=== PATIENT | male | born 1940 | race Caucasian/White ===

== ENCOUNTER → 2016-07-14 19:13 | Outpatient (CLI) | payer MEDICARE, BC ==
[2014-07-04 13:29] VITALS: BMI 47.1
[~2016-07-14 19:13] MED LIST: ACETAMINOPHEN325 MG PO; ARICEPT5 MG PO; ASPIRIN325 MG PO; BAYER CHEWABLE81 MG PO; BENADRYL50 MG PO; COLACE100 MG PO; ELECTROLYTE PROTOCOL; ELIQUIS2.5 MG PO; FLOMAX0.4 MG PO; HYDROCHLOROTH12.5 M1 PO; HYDROCODON-ACE1 EAC7 PO; K-TAB10 MEQ PO; LABETALOL HCL5 MG/M1 IV; LASIX40 MG PO; LEXAPRO20 MG PO; LISINOPRIL10 MG PO; LISINOPRIL5 MG PO; MELATONIN 3 MG1 TAB PO; METOPROLOL TAR100 M1 PO; METOPROLOL TART25 MG PO; MEVACOR20 MG PO; MILK OF MAGNESI30 ML GT; MIRALAX17 GM PO; MOBIC7.5 MG PO; NORVASC5 MG PO; ONDANSETRON4 MG/2 M3 PO; PERCOCET 10/3251 TA1 PO; PLAVIX75 MG PO; PRAVACHOL40 MG PO; SALINE FLUSH10 ML IV; SENOKOT-S TABLE1 TAB PO; SYNTHROID50 MCG PO; SYNTHROID75 MCG PO; SYSTANE 0.3-0.4%5 ML EACH EYE; TAMIFLU75 MG PO; TOPROL XL50 MG PO; TRAZODONE HCL50 MG PO
== END | disposition home or self-care (01) ==
LOC: D.LABREF 19:13
DX: M17.9 Osteoarthritis of knee, unspecified (principal); Z11.8 Encounter for screening for other infectious and parasitic diseases

== ENCOUNTER → 2016-07-16 06:49 | Outpatient (CLI) | payer MEDICARE, BC ==
[~2016-07-16] VITALS: Ht 167.6 cm; Wt 131.8 kg
--- NOTE | ~2016-07-16 | HEMODYNAMI ---
PATIENT:HEIDI LIZAMA MEDICAL RECORD: [id number] : 40 LOCATION:[facility] ADMISSION DATE: 07/16/16 Generatedon:07/16/201610:13 Patient name: HEIDI LIZAMA Patient #: [id number] SSN: [id number] : 1940 Date of study: 07/16/2016 Page: Of Hemodynamic Procedure Report Patient Data Patient Demographics Procedure consent was obtained First Name: HEIDI Gender: Male Last Name: ALDA : 1940 Middle Initial: KEILY Age: 76 year(s) Patient #: [id number] Race: SSN: [id number] Additional ID: [id number] Contact details Address: [address] [place] [address] State: [place] City: [place] Zip code: [address] Past Medical History Allergies: No known allergies Admission Admission Data Admission Date: 07/16/2016 Admission Time: 6:49 Admit Source: Other Insurance Payor: Medicare, Private health insurance Height (in.): 66 BSA: 2.34 (m2) Height (cm.): 167.64 BMI: 46.9 (kg/m2) Weight (lbs.): 290.59 Weight (kg.): 131.81 Medications upon Admission Medications Dosage Times Administered Last Remarks per Delivery Day Date and Time Clopidogrel Yes 07/16/2016 0:00 Lab Results Lab Result Date: 07/16/2016 Lab Result Time: 7:30 Biochemistry Name Units Result Min Max BUN mg/dl 15 --(--*-)-- 7 18 Creatinine mg/dl 1 --(--*-)-- 0.6 1.3 CBC Name Units Result Min Max Hematocrit % 37.2 *-(----)-- 42 54 Hemoglobin g/dl 11.9 *-(----)-- 13.5 17.5 Procedure Procedure Types Cath Procedure Diagnostic Procedure [facility] w/Coronaries PCI Procedure Coronary Stent Initial PTCA Additional Procedure Description Procedure Date Procedure Date: 07/16/2016 Procedure Start Time: 9:38 Procedure End Time: 10:12 Procedure Staff Name Function Maurice Olea MD Performing Physician Ivonne Garsia RN Nurse Cory Beyer RT Monitor James Alfred RT Electron Beam Photo Mask Maker Jassi Ulrich RT Monitor Procedure Data Cath Procedure Fluoroscopy Diagnostic fluoroscopy Total fluoroscopy Time: 7.5 time: 7.5 min min Diagnostic fluoroscopy Total fluoroscopy dose: dose: 2215 mGy 2215 mGy Contrast Material Contrast Material Type Amount (ml) Isovue 300 175 Entry Location Entry Primary Successful Side Size Upsize Upsize Entry Closure Dickerson ccessful Closure Location (Fr) 1 (Fr) 2 (Fr) Remarks Device Remarks Radial Right 6 Fr Mechanical artery Short Compression Diagnostic catheters Device Type Used For End Catheter Placement Terumo 5Fr Van 110cm LV Angiography catheter Procedure Complications No complications Procedure Medications Medication Administration Route Dosage Oxygen NC 2 l/min Heparin Flush Bag added to field 2 bags (1000units/500ml NS) Lidocaine 2% added to field 20 Radial Cocktail added to field 1 syringe (Verapomil 2mg/Nitro 400mcg/Heparin 1500units) Benadryl I.V. 50 mg Versed I.V. 1 mg Fentanyl I.V. 50 mcg Versed I.V. 1 mg Fentanyl I.V. 50 mcg Versed I.V. 0.5 mg Fentanyl I.V. 25 mcg Versed I.V. 0.5 mg Fentanyl I.V. 25 mcg Fentanyl I.V. 50 mcg Versed I.V. 0.5 mg Fentanyl I.V. 50 mcg Versed I.V. 0.5 mg Fentanyl I.V. 50 mcg [place]. 82251 units Versed I.V. 0.5 mg Fentanyl I.V. 50 mcg Nitroglycerin IC/IA I.C. 100 mcg Fentanyl I.V. 50 mcg Versed I.V. 0.5 mg Versed I.V. 1 mg Hemodynamics Rest BSA: 2.34 (m2) HGB: 11.9 (g/dl) O2 Consumption: Estimated: 252.29 (ml/min) O2 Co nsumption indexed: Estimated:107.82 (ml/min/m) Heart Rate: 52 (bpm) Pressure Samples Time Site Value (mmHg) Purpose Heart Use Rate(bpm) 9:45 LV 116/14,25 EDP 56 Gradients Valve Time Site Site Mean SEP/DFP Peak To Heart Use 1 2 (mmHg) (sec/min) Peak Rate (mmHg) (bpm) Aortic 9:45 LV AO 55 Snapshots Pre Cath Intra NCS Post Cath Vital Signs Time Heart Resp SPO2 NIBP (mmHg) Rhythm Pain Status Sedation Rate (ipm) (%) Level (bpm) 9:07:40 50 18 96 153/84(133) SB 7 (11) , 10(A) Very intense 9:12:02 51 20 97 166/85(133) SB 7 (11) , 10(A) Very intense 9:16:18 51 18 96 138/73(117) SB 7 (11) , 10(A) Very intense 9:20:36 54 18 96 126/69(107) SB 7 (11) , 10(A) Very intense 9:24:50 55 22 96 133/77(107) SB 7 (11) , 10(A) Very intense 9:29:08 50 18 95 133/75(109) SB 7 (11) , 10(A) Very intense 9:33:24 53 18 95 135/77(112) SB 7 (11) , 10(A) Very intense 9:37:42 51 24 96 130/73(116) SB 7 (11) , 10(A) Very intense 9:42:41 52 16 96 Measuring SB 7 (11) , 10(A) Very intense 9:42:43 53 16 96 136/78(111) SB 4 (11) , 10(A) Distressing 9:46:59 57 17 593 101/56(83) SB 4 (11) , 10(A) Distressing 9:51:07 54 22 95 113/62(92) SB 4 (11) , 10(A) Distressing 9:55:19 53 21 95 122/67(98) SB 4 (11) , 10(A) Distressing 9:59:35 52 17 95 115/61(89) SB 4 (11) , 10(A) Distressing 10:03:47 52 19 95 127/69(120) SB 4 (11) , 10(A) Distressing 10:08:03 51 16 95 121/73(105) SB 4 (11) , 10(A) Distressing 10:12:15 52 16 96 136/74(119) SB 4 (11) , 10(A) Distressing Medications Time Medication Route Dose Verified Delivered Reason Note s Effectiveness by by 9:09:46 Oxygen NC 2 l/min Maurice Ivonne Per physician Hai Garsia RN 9:09:53 Heparin Flush added 2 bags Maurice Maurice used for Bag to Hai Olea MD procedure (1000units/500ml field NS) 9:10:05 Lidocaine 2% added 20ml Maurice Maurice used for to vial Hai Olea MD procedure field 9:10:10 Radial Cocktail added 1 Maurice Maurice used for (Verapomil to syringe Hai Olea MD procedure 2mg/Nitro field 400mcg/Heparin 1500units) 9:10:21 Benadryl I.V. 50 mg Maurice Ivonne Per physician Hai Garsia RN 9:21:58 Versed I.V. 1 mg Maurice Ivonne for sedation Hai Garsia RN 9:22:04 Fentanyl I.V. 50 mcg Maurice Ivonne for sedation Hai Garsia RN 9:24:19 Versed I.V. 1 mg Maurice Ivonne for sedation Hai Garsia RN 9:24:23 Fentanyl I.V. 50 mcg Maurice Ivonne for sedation Hai Garsia RN 9:26:41 Versed I.V. 0.5 mg Maurice Ivonne for sedation Hai Garsia RN 9:26:51 Fentanyl I.V. 25 mcg Maurice Ivonne for sedation Hai Garsia RN 9:32:59 Versed I.V. 0.5 mg Maurice Ivonne for sedation Hai Garsia RN 9:33:05 Fentanyl I.V. 25 mcg Maurice Ivonne for sedation Hai Garsia RN 9:37:13 Fentanyl I.V. 50 mcg Maurice Ivonne for sedation Hai Garsia RN 9:39:30 Versed I.V. 0.5 mg Maurice Ivonne for sedation Hai Garsia RN 9:43:58 Fentanyl I.V. 50 mcg Maurice Ivonne for sedation Hai Garsia RN 9:44:01 Versed I.V. 0.5 mg Maurice Ivonne for sedation Hai Garsia RN 9:51:48 Fentanyl I.V. 50 mcg Maurice Ivonne for sedation Hai Garsia RN 9:53:14 [place]. 79837 Maurice Ivonne for dose units Hai Garsia RN anticoagulation verifid with dr olea 9:55:51 Versed I.V. 0.5 mg Maurice Ivonne for sedation Hai aGrsia RN 9:55:58 Fentanyl I.V. 50 mcg Maurice Ivonne for sedation Hai Garsia RN 10:00:13 Nitroglycerin I.C. 100 mcg Maurice Maurice for IC/IA Hai her 10:00:57 Fentanyl I.V. 50 mcg Maurice Ivonne for sedation Hai Garsia RN 10:01:02 Versed I.V. 0.5 mg Maurice Ivonne for sedation Hai Garsia RN 10:03:32 Versed I.V. 1 mg Maurice Ivonne for sedation Hai Garsia RN Procedure Log Time Note 8:40:34 Admit Source: Other 8:41:05 ACC Patient presents with Stable Angina CCS Anginal Class 2--Slight limitation of ordinary activity. 8:41:07 Diagnostic Cath status Elective 8:41:11 James MCCABE(R) sent for patient. Start room use. 8:41:12 Time tracking: Regular hours 8:41:17 Plan of Care:Hemodynamics will remain stable., Cardiac rhythm will remain stable., Comfort level will be maintained., Respiratory function will remain adequate., Patient/ family verbilizes understanding of procedure., Procedure tolerated without complication., Recovers from procedure without complications.. 8:47:02 Patient allergic to No known allergies 8:47:08 Insurance Payor : Private health insurance, Medicare 8:47:58 H&P Date Dictated: 07/14/2016 Within 30 days and on chart., H&P Addendum completed by physician on day of procedure. (MUST COMPLETE FOR ALL OUTPATIENTS). 8:48:14 Patient Height : 167.64 cm 8:48:19 Patient Weight : 131.81 kg 8:49:34 Lab Result : BUN 15 mg/dl 8:49:34 Lab Result : Hematocrit 37.2 % 8:49:34 Lab Result : Hemoglobin 11.9 g/dl 8:49:34 Lab Result : Creatinine 1 mg/dl 8:49:54 Informed consent obtained and on chart 8:58:21 Patient received from Outpatients to CCL 1 Alert and oriented. Tansferred to table in Supine position. 8:58:23 Warm blankets applied, and emma hugger turned on for patient comfort. 8:58:23 Correct patient and procedure confirmed by team. 8:58:24 ECG and BP/O2 sat monitors applied to patient. 8:58:30 Pre-procedure instructions explained to patient. 8:58:31 Pre-op teaching completed and patient verbalized understanding. 8:58:33 Family in waiting room. 8:58:36 Patient NPO since Midnight. 8:58:39 Is the patient allergic to Iodine/contrast media? No. 8:58:40 Is patient on blood thinner?Yes 8:58:44 ACC The patient was administered the following blood thiners within the last 24 hours: ACCPlavix 9:03:06 Patient diabetic? No. 9:03:10 Previous problem with sedation/anesthesia? No ? 9:03:12 Snore? Yes 9:03:12 Sleep apnea? Yes 9:03:13 Deviated septum? No 9:03:14 Opens mouth fully? Yes 9:03:15 Sticks out tongue? Yes 9:03:17 Airway obstruction? No ? 9:03:22 Dentures? Yes IN 9:03:28 Pre procedure: right dorsailis pedis pulse 1+ Palpable, but thready & weak; easily obliterated 9:03:41 Modified Jarrod's test Ulnar < 7 seconds 9:03:43 Patient pain scale 0/10 ?. 9:03:52 IV patent on arrival in left forearm with 0.9% NaCl at KVO. 9:05:41 Vital chart was started 9:09:46 Oxygen 2 l/min NC was given by Ivonne Garsia RN; Per physician; 9:09:51 Lab results completed and on chart. 9:09:53 Heparin Flush Bag (1000units/500ml NS) 2 bags added to field was given by Maurice Olea MD; used for procedure; 9:09:55 Right Radial & Right Groin area was prepped with chlora-prep and draped in sterile fashion 9:09:56 Alarms reviewed by Cristiano. N. 9::57 Sharps counted by scrub and verified by R.N. 9:10:05 Lidocaine 2% 20ml vial added to field was given by Maurice Olea MD; used for procedure; 9:10:10 Radial Cocktail (Verapomil 2mg/Nitro 400mcg/Heparin 1500units) 1 syringe added to field was given by Maurice Olea MD; used for procedure; 9::21 Benadryl 50 mg I.V. was given by Ivonne Garsia RN; Per physician; 9::47 Zero performed for pressure channel P1 9::32 Baseline sample Acquired. 9::35 Rhythm: sinus rhythm 9::36 Full Disclosure recording started 9::49 --------ALL STOP TIME OUT------ 9::32 Final Timeout: patient, procedure, and site verified with staff and physician. All members of the team are in agreement. 9:21:34 Right Radial & Right Groin site verified by team. 9:21:37 Physical assessment completed. ASA score P 2 - A patient with mild systemic disease as per Maurice Olea MD. 9:21:40 Sedation plan: IV Moderate Sedation Versed, Fentanyl 9::58 Versed 1 mg I.V. was given by Ivonne Garsia RN; for sedation; 9:22:04 Fentanyl 50 mcg I.V. was given by Ivonne Garsia RN; for sedation; 9:23:19 Use device set Radial Dx 9:23:20 Acist Syringe opened to sterile field. 9:23:20 Cardinal Cath Pack opened to sterile field. 9:23:20 Bag Decanter opened to sterile field. 9:23:21 Terumo 6Fr Slender Glidesheath opened to sterile field. 9:23:21 St Benigno 260cm J .035 wire opened to sterile field. 9:23:22 Acist Hand Control opened to sterile field. 9:23:22 Acist Manifold opened to sterile field. 9:23:24 Tegaderm 4 x 4 opened to sterile field. 9:24:19 Versed 1 mg I.V. was given by Ivonne Garsia RN; for sedation; 9:24:23 Fentanyl 50 mcg I.V. was given by Ivonne Sun RN; for sedation; 9:26:41 Versed 0.5 mg I.V. was given by Ivonne Garsia RN; for sedation; 9:26:51 Fentanyl 25 mcg I.V. was given by Ivonne Garsia RN; for sedation; 9:32:59 Versed 0.5 mg I.V. was given by Ivonne Garsia RN; for sedation; 9:33:05 Fentanyl 25 mcg I.V. was given by Ivonne Garsia RN; for sedation; 9:37:13 Fentanyl 50 mcg I.V. was given by Ivonne Garsia RN; for sedation; 9:38:23 Procedure started. 9:38:39 Local anesthetic to right radial artery with Lidocaine 2% by Maurice Olea MD.INITIAL ACCESS ONLY 9:39:30 Versed 0.5 mg I.V. was given by Ivonne Garsia RN; for sedation; 9:39:48 A 6 Fr Short sheath was inserted into the Right Radial artery 9:42:36 A Bizzingo 5Fr Van 110cm catheter was advanced over the wire and used for LV Angiography. 9:43:58 Fentanyl 50 mcg I.V. was given by Ivonne Garsia RN; for sedation; 9:44:01 Versed 0.5 mg I.V. was given by Ivonne Garsia RN; for sedation; 9:45:51 LV angiography performed. 9:45:55 EF : 55 % 9:46:02 LV hemodynamics recorded. 9:46:04 Injector settings: Ml/sec: 5, Volume: 15, 9:46:27 RCA angiography performed. 9:47:06 LCA angiography performed. 9:48:36 Catheter removed. 9:50:23 [employer] BasixCompak Inflation Kit opened to sterile field. 9:50:24 High Pressure Extension Tubing ([place]le[place]) opened to sterile field. 9:50:24 Miller BMW [place] 2 J-tip 300cm 0.014 guide wir opened to sterile field. 9:50:25 Cordis 6FR XBLAD 3.5 guide catheter opened to sterile field. 9:50:32 ACC PCI Site: mLAD has 80% stenosis. 9:50:34 ACC Pre-intervention GARRICK Flow is 3. 9:50:41 6 Fr XBLAD 3.5 guide catheter was inserted over the wire 9:51:48 Fentanyl 50 mcg I.V. was given by Ivonne Garsia RN; for sedation; 9:53:14 Heparin Bolus 38054 units I.V. was given by Ivonne Garsia RN; for anticoagulation; dose verifid with dr olea 9:53:28 BMW 2 wire advanced. 9:55:51 Versed 0.5 mg I.V. was given by Ivonne Garsia RN; for sedation; 9:55:58 Fentanyl 50 mcg I.V. was given by Ivonne Garsia RN; for sedation; 9:58:27 Inflation Number: 1 A Boardwalk[employer] Integrity 3.5 X 22 stent was prepped and advanced across the Mid LAD. The stent was deployed at 15 SUZI for 0:18 (min:sec). 10:00:13 Nitroglycerin IC/IA 100 mcg I.C. was given by Maurice Olea MD; for vasodilation; 10:00:57 Fentanyl 50 mcg I.V. was given by Ivonne Garsia RN; for sedation; 10:01:02 Versed 0.5 mg I.V. was given by Ivonne Garsia RN; for sedation; 10:01:55 Wire removed. 10:02:22 DIAG 10:02:29 BMW 2 wire advanced. 10:02:50 Stent catheter was removed intact over wire. 10:03:32 Versed 1 mg I.V. was given by Ivonne Garsia RN; for sedation; 10:04:37 Inflation number: 1 A [place] Sci [place] 2.0 X 15 balloon was prepped and advanced across the 1st Diag, then inflated to 8 SUZI for 0:27 (min:sec). 10:05:57 Inflation number: 2 The [place] Sci [place] 2.0 X 15 balloon was reinflated across the 1st Diag, to 10 SUZI for 0:35 (min:sec). 10:07:27 Balloon removed over the wire. 10::28 Wire removed. 10::29 Guide catheter removed. 10:07:36 Contrast amount:Isovue 300 175ml. 10:07:40 Sheath removed intact; hemostasis achieved with Mechanical Compression to the Right Radial artery. 10:07:42 Procedure ended.(Physican Out) 10:08:28 Procedure type changed to Cath procedure, Diagnostic procedure, LHC, LHC w/Coronaries, PCI procedure, Coronary Stent Initial, PTCA Additional 10:08:35 Fluoroscopy time 07.50 minutes. 10:08:40 Fluoroscopy dose: 2215 mGy 10:08:40 Flurop Dose total: 2215 10:08:42 Sharps counted by scrub and verified by R.N. 10:08:44 TR band inflated with 10cc of air. 10:08:45 Insertion/operative site no bleeding no hematoma. 10:08:53 Post right radial artery:stable 10:08:54 Post Procedure Pulses reassessed and unchanged 10:08:57 Post procedure rhythm: sinus rhythm 10:08:59 Post procedure instruction explained to patient.Patient verbalizes understanding. 10:09:15 Terumo TR Band Large opened to sterile field. 10:09:21 Procedure and supply charges have been captured, reviewed, submitted and are correct. 10:10:05 Cook 21G 4cm Radial Needle opened to sterile field. 10:10:21 Procedure Complication : No complications 10:12:47 Vital chart was stopped 10:12:48 See physician's report for complete and final results. 10:12:50 Report given to Post Procedure Room. 10:12:53 Patient transfered to Post Procedure Room with Stretcher. 10:12:54 Procedure ended. 10:12:54 Full Disclosure recording stopped 10:13:03 End room use (Document Last) Intervention Summary Intervention Notes Time ActionType Lesion and Equipment Action# Pressure Duration Attributes Used 9:58:27 Place stent Mid LAD Medtronic 1 15 00:19 Integrity 3.5 X 22 stent 10:04:37 Inflate 1st Diag [place] 1 8 00:27 balloon Sci [place] 2.0 X 15 balloon 10:05:57 Reinflate 1st Diag [place] 2 10 00:35 balloon Sci [place] 2.0 X 15 balloon Device Usage Item Name Manufacture Quantity Catalog Number Hospital Part Current Mini [facility] Lot# / Charge Number Stock Stock Serial# Code Acist Acist 1 25696 415117 234422 933789 20 Syringe Medical Systems Inc Cardinal Cardinal 1 [id number] 215504 43578 931369 5 Cath Pack Health Bag Microtek 1 2002S 874720 40438 182521 5 Mobile Complete Inc. Terumo 6Fr Terumo 1 [id number] 526057 717991 373493 [address] St Benigno 1 947808 387002 420275 684367 30 260cm J .035 wire Acist Hand Acist 1 36025 143515 363983 040836 5 Control Medical Systems Inc Acist Acist 1 21215 003319 485195 890016 5 Manifold Medical Systems Inc Tegaderm 4 3M 1 1626W 941606 399463 839457 5 x 4 Terumo 5Fr Terumo 1 405023 465261 574186 314357 5 Van 110cm catheter Merit Merit 1 [id number] 860569 570332 160092 15 BasixCompak Medical Inflation Kit High Merit 1 [id number] 981144 48012 173240 10 Pressure Medical Extension Tubing ([place]le[place]) Miller BMW Miller 1 [id number] 646603 996075 013189 5 [place] 2 Vascular J-tip 300cm 0.014 guide wir Cordis 6FR Cardinal 1 [id number] 149893 135881 911661 10 XBLAD 3.5 Health guide catheter Medtronic Medtronic 1 [id number] 402541 889410 0 [id number] Integrity 3.5 X 22 stent [place] Sci [place] 1 [id number] 252952 745503 590824 1 [id number] infoBizz 2.0 X 15 balloon Terumo TR Terumo 1 [id number] 761749 848155 40 Band Large Cook 21G Cook [facility] 1 [id number] 222164 721593 5 4cm Radial Needle Signature Audit [place] Stage Time Signature Unsigned Intra-Procedure 07/16/2016 Jassi Ulrich 10:13:29 AM RT(R) Signatures Monitor : Cory Beyer RT Signature : Date : Time : Monitor : Jassi Ulrich RT Signature : Date : Time : [facility] [address] [place] [address]
[2016-07-16 07:44] LABS: BASOPHILS 0.3 % (0.0-2.0); EOSINOPHILS 3.3 % (0-7); HEMATOCRIT 37.2 % (42.0-54.0); HEMOGLOBIN 11.9 g/dL (13.5-17.5); IMMATURE GRANULOCYTES 0.3 % (0-5); LYMPHOCYTES 21.6 % (15-50); MCH 28.1 pg (26.0-34.0); MCV 87.9 fL (80.0-100.0); MEAN PLATELET VOLUME 10.2 fL (7.4-10.4); NEUTROPHILS 63.5 % (40-80); RBC 4.23 10x6/uL (4.20-6.10); RDW 14.8 % (11.5-14.5); WBC 7.6 10x3/uL (4.8-10.8)
[2016-07-16 07:52] LABS: PLATELET COUNT 152 10x3/uL (130-400)
[2016-07-16 08:02] LABS: CALC OSMOLALITY 281 mosm/kg (275-300); CALCIUM 8.5 mg/dL (8.5-10.1); CHLORIDE - SERUM 104 mmol/L (98-107); GLUCOSE 96 mg/dL (74-106); POTASSIUM - SERUM 3.8 mmol/L (3.5-5.1); SODIUM 141 mmol/L (136-145); UREA NITROGEN 15 mg/dL (7-18); eGFR NON AFRICAN AMERICAN 77 mL/min (90-120)
[2016-07-16 08:24] VITALS: BP 130/77; Ht 167.6 cm; Wt 131.8 kg
--- NOTE | 2016-07-16 10:40 | NUR ---
1040 RESTING QUIELTY WITH EYES CLOSED.NO DISTRESS NOTED. VSS WITH TR BAND TO R/WRIST CDI NO BLEEDING NO HEMATOMA NOTED.WILL MONITOR 1100 CHEST PAIN DENIED WITH TR BAND TO R/WRIST CDI NO BLEEDING NO HEMATOMA NOTED. VOIDS 200 CC CLEAR YELLOW URINE TO COLLECTION
--- NOTE | 2016-07-16 11:00 | NUR ---
1100 RESTING QUIETLY WITH EYES CLOSED RESPIRATIONS EVEN AND UNLABORED. VSS WITH TR BAND TO R/WRIST MONITOR
--- NOTE | 2016-07-16 11:30 | NUR ---
1130 NO CHANGE IN ASSESSMENT NO DISTRESS NOTED VSS TR BAND IN PLACE CDI NO BLEEDING NO HEMATOMA NOTED
--- NOTE | 2016-07-16 11:57 | NUR ---
CHEST PAIN DENIED WITH VSS TR BAND TO R/WRIST CDI NO BLEEDING NO HEMATOMA NOTED. INSTRUCTED PATIENT TO KIMBERLI CHILDERS STRAIGHT NO BENDING OR FLEXING OF WRIST
--- NOTE | 2016-07-16 13:12 | NUR ---
HR 49 BP 116/58 RESPIRATIONS EVEN AND UNLABORED WITH O2 AT 2 LITERS. TR BAND TO R/WRIST CDI NO BLEEDING NO HEMATOMA NOTED. AT BEDSIDE WILL MONITOR
--- NOTE | 2016-07-16 14:05 | NUR ---
VSS WITH CHEST PAIN DENIED. HR 49 BP 121/58 TR BAND TO R/WRIST CDI NO BLEEDING NO HEMATOMA NOTED INSTRUCTED PATIENT TO KEEP R/ARM STRAIGHT NO BENDING OR FLEXING
--- NOTE | 2016-07-16 14:47 | NUR ---
4 CC AIR REMOVED FROM TR BAND WITH NO BLEEDING NOTED. CHEST PAIN IS DENIED. PATIENT UP TO GET DRESSED FOR DISCHARGE HOME AT SIDE
--- NOTE | 2016-07-16 15:04 | NUR ---
PIV REMOVED WITH DRESSING APPLIED. CHEST PAIN DENIED VERBAL AND WRITTEN DISCHARGE INSTRUCTIONS GONE OVER WITH PATIENT AND . TR BAND REMOVED WITH NO BLEEDING NO HEMATOMA NOTED. DRESSING APPLIED. LEFT VIA TO [facility] FOR TO DRIVE HOME
--- NOTE | 2016-08-03 15:45 | OP ---
PATIENT NAME: HEIDI LIZAMA MEDICAL RECORD: [id number] :40 LOCATION:D.CAT ADMISSION DATE: SURGEON: DAKOTA WISEMAN M.D. DATE OF OPERATION: 07/16/2016 REFERRING PHYSICIAN: Dr. Dann Obrien. PROCEDURES PERFORMED: 1. Selective coronary angiography. 2. Left heart catheterization with ventriculogram. 3. PTCA and stent placed in the LAD. INDICATION: A 76-year-old gentleman presents with symptoms of heart failure and angina. EQUIPMENT USED: Diagnostic 5-[place] Van catheter. INTERVENTION: A 6-Kenyan XB LAD guide, BMW guide wire, 3.5 x 22 mm Integrity stent, 2.0 x 12 mm [place] balloon. TECHNIQUE: A 6-[place] sheath was inserted in retrograde fashion in the right radial artery. Next, selective coronary angiography was performed in standard view using 5-Kenyan Van catheter. Left heart catheterization was performed using use Van catheter as well. CORONARY ANATOMY: 1. Left main: Left main trunk is moderate in caliber. It gives rise to the LAD and circumflex. It is angiographically normal. 2. LAD: This is a large caliber vessel extending to the apex. The proximal vessel demonstrates an 80% stenosis at the level of the bifurcation of the first diagonal branch. 3. Circumflex: This vessel is moderate in caliber. It is angiographically normal. 4. Right coronary: This vessel is large in caliber and dominant. The PDA and posterolateral branch encompass the apex. This vessel has mild irregularities, but nothing worse than 20%. 5. Left ventricle: Left ventricle is normal in size and function. No wall motion abnormalities are seen. Its ejection fraction is 50%. DESCRIPTION OF INTERVENTION: A 100 units per kilogram of heparin was infused. A 6-[place]yan XB LAD guide was advanced and engaged in the left main coronary artery. Next, a BMW guide wire was placed to the distal LAD. The LAD was then stented with a 3.5 x 22 mm Integrity stent at 15 atmospheres. Injection reveals stent to be widely patent with 0% residual stenosis. There a was compromise in the first diagonal branch. The BMW guidewire was then ____ the diagonal branch. Long inflations performed to 2.0 balloon at 10 atmospheres. Injections revealed residual 40% stenosis, but no evidence of dissection. At this point, the wire and guide were removed. IMPRESSION: Successful percutaneous transluminal coronary angioplasty and stent to the LAD with 0% residual stenosis. TRANSINT:[id number] Voice Confirmation ID: [id number] DOCUMENT ID: [id number] OPERATIVE REPORT [id number] HEIDI LIZAMA TIMOTHY E M.D. at 1545 CC: [id number] DICTATION DATE: 07/16/16 1020 TOURS CAPTAIN: 07/16/16 1035 DEP CLI 07/16/16 [facility] [address] [place] [address]
== END | disposition home or self-care (01) ==
LOC: D.CATH 06:49
PROVIDERS: Internal Medicine Cardiovascular Disease
DX: I25.119 Atherosclerotic heart disease of native coronary artery with unspecified angina pectoris (principal)

== ENCOUNTER 2016-07-27 12:00 | Inpatient (IN) | payer MEDICARE, BC ==
[~2016-07-27] VITALS: Ht 167.6 cm; Wt 136.4 kg
[~2016-07-27 12:00] MED LIST changes: -ASPIRIN325 MG PO; -ELIQUIS2.5 MG PO; -LASIX40 MG PO; -METOPROLOL TART25 MG PO; -PERCOCET 10/3251 TA1 PO; -TAMIFLU75 MG PO
[2016-08-20 14:38] LABS: BASOPHILS 0.4 % (0.0-2.0); EOSINOPHILS 4.4 % (0-7); HEMATOCRIT 39.6 % (42.0-54.0); HEMOGLOBIN 12.6 g/dL (13.5-17.5); IMMATURE GRANULOCYTES 0.1 % (0-5); LYMPHOCYTES 30.5 % (15-50); MCH 28.1 pg (26.0-34.0); MCHC 31.8 g/dL (31.0-37.0); MCV 88.2 fL (80.0-100.0); MEAN PLATELET VOLUME 10.6 fL (7.4-10.4); MONOCYTES 11.9 % (2-11); NEUTROPHILS 52.7 % (40-80); PLATELET COUNT 148 10x3/uL (130-400); RBC 4.49 10x6/uL (4.20-6.10); RDW 14.1 % (11.5-14.5); WBC 7.8 10x3/uL (4.8-10.8)
[2016-08-20 14:52] LABS: ANION GAP 13.3 mmol/L (8-16); CALCIUM 8.8 mg/dL (8.5-10.1); CARBON DIOXIDE 27.8 mmol/L (21.0-32.0); CREATININE - SERUM 1.1 mg/dL (0.6-1.3); POTASSIUM - SERUM 4.1 mmol/L (3.5-5.1)
[2016-08-20] MEDS ORDERED: METOPROLOL TART25 MG PO (14:59)
[2016-08-20 15:09] LABS: INR 1.23 (0.85-1.17); PROTIME 15.4 SECONDS (11.6-15.0)
[2016-08-20 15:17] LABS: APPEARANCE CLEAR (CLEAR); BILIRUBIN NEGATIVE (NEGATIVE); COLOR YELLOW (YELLOW); GLUCOSE NEGATIVE (NEGATIVE); KETONE NEGATIVE (NEGATIVE); LEUKOCYTE ESTERASE NEGATIVE (NEGATIVE); NITRITE NEGATIVE (NEGATIVE); PROTEIN NEGATIVE (NEGATIVE); UROBILINOGEN NORMAL (NORMAL)
[2016-08-20 15:23] LABS: BACTERIA FEW /hpf (NONE SEEN); EPITHELIAL CELLS 0-5 /hpf (0-5); MUCUS >1+ /lpf (NONE SEEN); RED CELLS - URINE 0-5 /hpf (0-5); WHITE CELLS - URINE 0-5 /hpf (0-5)
[2016-08-24] VITALS (13 sets, daily range): BP systolic 113–186; BP diastolic 66–94; Ht 167.6 cm; Wt 136.4 kg
--- NOTE | 2016-08-24 06:58 | NUR ---
0658 PT/PTT DRAWN
[2016-08-24 07:24] LABS: APTT 25.7 SECONDS (22.8-39.4); INR 1.16 (0.85-1.17); PROTIME 14.7 SECONDS (11.6-15.0)
--- NOTE | 2016-08-24 08:56 | NUR ---
0827: LEFT LEG SCRUBBED WITH HIBICLENS AND ALCHOL PRIOR TO STERILE PREP. [facility]
--- NOTE | 2016-08-24 10:40 | NUR ---
PATIENT RECEIVED TO FLOOR FROM PACU VIA BED. RESPIRATIONS EVEN AND UNLABORED. VITAL SIGNS STABLE. FAMILY AT BEDSIDE. ORIENTED TO ROOM. INSTRUCTED PATIENT HE WOULD BE ON BEDREST AND NOT GETTING UP TODAY. STATES UNDERSTANDING. URNINAL PROVIDED. RATES PAIN 7/10. STATES IT IS BETTER THAN BEFORE. SCD TO RIGHT LEG. DRESSING TO LEFT KNEE CLEAN, DRY AND INTACT WITH WOUND VAC INTACT. ICE PACK IN PLACE. SIDE RAILS UP X2. BED IN LOW POSITION. CALL LIGHT IN REACH.
--- NOTE | 2016-08-24 12:20 | NUR ---
ALERT IN BED EATING LUNCH. STATES PAIN IS MORE TOLERABLE AFTER RECEIVING NORCO. SIDE RAILS UP X3. BED IN LOW POSITION. CALL LIGHT IN REACH. FAMILY AT BEDSIDE.
--- NOTE | 2016-08-24 13:20 | NUR ---
PATIENT ALERT IN HIGH RING POSITION VISITING WITH FAMILY. RESPIRATIONS EVEN AND UNLABORED. RATES PAIN 6/10. DENIES NEEDS. SIDE RAILS UP X3. BED IN LOW POSITION. CALL LIGHT IN REACH. WILL CONTINUE TO MONITOR.
--- NOTE | 2016-08-24 15:15 | NUR ---
PATIENT IN MID RING POSITION RESTING WITH EYES CLOSED. RESPIRATIONS EVEN AND UNLABORED. VITAL SIGNS STABLE. FAMILY PRESENT. SIDE RAILS UP X2. BED IN LOW POSITION. CALL LIGHT IN REACH.
--- NOTE | 2016-08-24 17:18 | NUR ---
PATIENT IN HIGH RING POSITION EATING DINNER. TOLERATING WELL. FAMILY PRESENT. RATES PAIN 12/19. 1 TAB NORCO PER PRN ORDER. DENIES NEEDS. SIDE RAILS UP X3. BED IN LOW POSITION. CALL LIGHT IN REACH.
--- NOTE | 2016-08-24 18:30 | NUR ---
IV TO LEFT FOREARM RED AND BRUISING AT SITE. IV D/C WITH CATH TIP INTACT. SITE COVERED WITH GAUZE AND BANDAID. ATTEMPTED TO RESITE 22 GAUGE IV TO RIGHT FOREARM X1 FAILED ATTEMPT. WILL HAVE ANOTHER NURSE ATTEMPT TO RESITE
--- NOTE | 2016-08-24 18:50 | NUR ---
22 GAUGE IV SITED TO LEFT UPPER ARM BY DEEPAK VAUGHAN
--- NOTE | 2016-08-24 18:57 | NUR ---
STATES SHE IS LEAVING AT THIS TIME. BED ALARM TURNED ON. SIDE RAILS UP X3. BED IN LOW POSITION. CALL LIGHT IN REACH.
--- NOTE | 2016-08-25 02:00 | NUR ---
PT IN BED WITH NO DISTRESS. RESPIRATIONS ARE EVEN AND UNLABORED. SIDE RAILS X 2. BED LOW. CALL LIGHT IN REACH.
[2016-08-25 05:40] LABS: BASOPHILS 0.1 % (0.0-2.0); EOSINOPHILS 0.1 % (0-7); HEMATOCRIT 35.2 % (42.0-54.0); HEMOGLOBIN 11.2 g/dL (13.5-17.5); IMMATURE GRANULOCYTES 0.2 % (0-5); LYMPHOCYTES 12.2 % (15-50); MCH 28.3 pg (26.0-34.0); MCHC 31.8 g/dL (31.0-37.0); MCV 88.9 fL (80.0-100.0); MEAN PLATELET VOLUME 10.8 fL (7.4-10.4); MONOCYTES 17.2 % (2-11); NEUTROPHILS 70.2 % (40-80); PLATELET COUNT 172 10x3/uL (130-400); RBC 3.96 10x6/uL (4.20-6.10); RDW 14.3 % (11.5-14.5); WBC 9.2 10x3/uL (4.8-10.8)
[2016-08-25 05:49] LABS: ANION GAP 7.5 mmol/L (8-16); CALCIUM 8.6 mg/dL (8.5-10.1); CARBON DIOXIDE 31.2 mmol/L (21.0-32.0); CREATININE - SERUM 1.2 mg/dL (0.6-1.3); POTASSIUM - SERUM 3.7 mmol/L (3.5-5.1)
[2016-08-25 08:12] VITALS: BP 153/66
--- NOTE | 2016-08-25 08:22 | NUR ---
AWAKE AND ALERT. NO C/O AT THIS TIME. LUNGS ARE CLEAR BILATERALLLY NO COUGH NOTED. REPORTS USED IS INSTRUCTED. SKIN IS INTACT WITHOUT REDNESS EXCEPT INCISION TO LEFT KNEE WHICH HAS A PROVENA WOUND VAC IN PLACE WITH SCANT SEROUS DRAINAGE NOTED. SOME EDEMA NOTED TO LEFT LE. WILL MONITOR. SCD'S IN PLACE TO RIGHT LEG. REPOSITIONED IN BED FOR COMFORT. BREAKFAST SERVED IN ROOM. DENIES NEEDS AT THIS TIME.
--- NOTE | 2016-08-25 09:25 | NUR ---
REQUESTED AND GIVEN ONE HYDROCODONE PO FOR C/O LEFT KNEE PAIN LEVEL 8. WILL MONITOR. UP IN CHAIR AT BEDSIDE.
--- NOTE | 2016-08-25 10:30 | NUR ---
REPORTS PAIN IMPROVED AT THIS TIME.
--- NOTE | 2016-08-25 10:36 | NUR ---
* Is the patient Alert and Oriented? Yes 0 * How many steps to enter\exit or inside your home? 2 0 * PCP Dr. Obrien 0 * Pharmacy [facility] 0 * Preadmission Environment Home with Family 0 * ADLs Partial Dependent 0 * Partial ADLs (Assistance needed) Ambulation Medication Management 0 * Equipment Cane CPAP Rolling Walker Wheelchair 08/25/2016 10:37 DCP: Discharge Planning Patient Name: HEIDI LIZAMA Admission Status: Elective Accout number: [id number] Admission Date: 08-24-2016 : 1940 Admission Diagnosis: Attending: ERI Current LOS: 1 Anticipated DC Date: 08-27-2016 Planned Disposition: Home with Home Health Primary Insurance: MEDICARE A & B Discharge Planning Comments: CM met with patient & spouse to assess dc plans/needs. Patient states he lives at home with his . He has a quad cane, walker, wheel chair and CPAP at home. He has had home health in the past, but unable to recall which agency. Discussed discharge options with them - home health vs outpatient. Patient would benefit from home health for a couple of weeks prior to beginning outpatient therapy. Reviewed list of local home health agencies - [facility] signed for [facility]. Anticipate dc . CM will follow. Professor Of Kinesiology: Pricilla Perez
[2016-08-25 12:06] VITALS: BP 127/59
[2016-08-25 17:31] VITALS: BP 141/69
--- NOTE | 2016-08-25 17:39 | CN ---
PATIENT NAME:HEIDI LIZAMA MEDICAL RECORD: [id number] : 40 LOCATION:D.MS Marquez2208 ADMIT DATE: 08/24/16 ACCOUNT: [id number] CONSULTING PHYSICIAN: SETH SALAMANCA MD REFERRING PHYSICIAN: SETH ADAMS MD DATE OF CONSULTATION: 08/24/2016 Consultation Note DATE OF ADMISSION: 08/24/2016 REASON FOR CONSULTATION: Medical management. HISTORY OF PRESENT ILLNESS: The patient is a 76-year-old gentleman, who had been referred to Dr. Adams, he has had pain in the left knee. It was felt the patient would benefit from a total left knee replacement. PAST MEDICAL HISTORY: Significant that he has had pain in the left knee off and on for quite some time. He has had a history of Peyronie disease, hypogonadism, hypertension, morbid obesity, prostatism, hyperlipidemia, and rheumatoid arthritis. The patient had a CVA in the past as well. He has had a history of insomnia, hyperlipidemia, and hypokalemia. MEDICATIONS: Include Aricept 5 mg 1 p.o. q. day, aspirin 325 mg once a day, Breo Ellipta 100 mcg/25 mcg 1 puff q. day, Bumex 1 mg p.o. q. day, Plavix 75 mg once a day, Lexapro 20 mg once a day, hydrochlorothiazide 12.5 mg once a day, levothyroxine 75 mcg once a day, meloxicam 15 mg once a day, metoprolol tartrate 50 mg one-half tablet p.o. b.i.d., Protonix 40 mg once a day, KCl 10 mEq once a day, pravastatin 40 mg once a day, Flomax 0.4 mg 1 p.o. q. day, trazodone 50 mg 1 p.o. q.h.s., Ventolin HFA 2 puffs q.4 hours p.r.n. shortness of breath. ALLERGIES: He has known drug allergies. FAMILY HISTORY: Father had myocardial infarction, at 76 years of age. Mother had diabetes. SOCIAL HISTORY: The patient retired from [employer], 4 years college graduate. Nonsmoker, occasionally has an alcoholic beverage, born in [place], grew up in [place]. REVIEW OF SYSTEMS: GENERAL: He denies any headaches, seizures, or syncope. Denies change in visual or auditory acuity. PULMONARY: He denies any shortness of breath, cough or congestion, history of TB, asthma or bronchitis. CARDIOVASCULAR: He has had no chest pain, palpitation, PND or orthopnea. GASTROINTESTINAL: No chronic nausea, vomiting, melena or hematochezia. GENITOURINARY: No urgency, frequency, or dysuria. PHYSICAL EXAMINATION: GENERAL: The patient is postop. VITAL SIGNS: His temperature is 97.5, his pulse is 60, respirations 16, his blood pressure is 113/67, and pulse 96. HEENT: Head is normocephalic. No lesions. Ears: TMs clear. Eyes: Pupils equal, round and reactive to light. His extraocular movements are intact. CONSULT REPORT [id number] HEIDI LIZAMA Nasal cavity, oral cavity and oropharynx clear. NECK: Supple. There is no adenopathy. HEART: Has a regular rhythm. No murmurs, gallops or rubs. LUNGS: Clear. ABDOMEN: Soft, bowel sounds positive. No organomegaly. EXTREMITIES: The patient's left lower extremity has dressing in place over the left knee. No active bleeding is noted. LABORATORY DATA: Preoperatively on the 20 of August, he had a chest x-ray showing no active chest findings. On the night , he had a sodium 140, potassium 4.1. His chloride was 103. His BUN is 19, creatinine is 1.1. He had a hemoglobin 12.6, hematocrit 39.6. His urinalysis was unremarkable. ASSESSMENT: 1. Status post left total knee replacement secondary to end-stage degenerative joint disease. 2. History of cerebrovascular accident. 3. Hypothyroidism. 4. Benign prostatic hypertrophy. 5. Morbid obesity. 6. Insomnia. 7. Hypertension. PLAN: We will continue all current medications. The patient will have CBC as well as BMP in a.m. We will continue incentive spirometry q.4 hours. Also, the patient will need CPAP placed nightly. Thanks for the consultation. TRANSINT:[id number] Voice Confirmation ID: [id number] DOCUMENT ID: [id number] SETH SALAMANCA MD at 4775 CC: [id number] DICTATION DATE: 08/24/161749 COMMERCIAL GREEN BUILDING DESIGNER: 08/24/161915 ADM IN [facility] [address] [id number]
--- NOTE | 2016-08-25 19:23 | NUR ---
ATE MOST OF SUPPER. FAMILY BROUGHT IN ITILIAN CHEESE CAKE TO PATIENT. NO CHANGES NOTED. DENIES NEEDS.
[2016-08-25 20:00] VITALS: BP 137/56
[2016-08-26] VITALS: BP 110/59
[2016-08-26 04:00] VITALS: BP 136/74
[2016-08-26 05:48] LABS: HEMATOCRIT 30.4 % (42.0-54.0); HEMOGLOBIN 9.8 g/dL (13.5-17.5); MCH 28.2 pg (26.0-34.0); MCHC 32.2 g/dL (31.0-37.0); MCV 87.4 fL (80.0-100.0); MEAN PLATELET VOLUME 10.7 fL (7.4-10.4); RBC 3.48 10x6/uL (4.20-6.10); RDW 14.5 % (11.5-14.5); WBC 10.3 10x3/uL (4.8-10.8)
--- NOTE | 2016-08-26 06:00 | NUR ---
PATIENT RESTING WITH EYES CLOSED. NO VISUAL SIGNS OF DISTRESS. PATIENT BED IN LOWEST POSITION AND CALL LIGHT WITHIN REACH.
--- NOTE | 2016-08-26 07:59 | NUR ---
PT SEEN AND ASSESSED. COMPLAINTS OF PAIN TO OPERATIVE KNEE OF 01/18 BUT RECENTLY RECIEVED PAIN PILL. DRESSING TO LEFT KNEE CLEAN DRY AND INTACT. CURRENTLY IN CPM MACHINE WITH ICE TO KNEE. SCD ON X 1. LEFT FOOT 2+EDEMA WITH RIGHT FOOT 1+ EDEMA. NON SKID SOCKS ON AND BED ALARM ON WITH CALL LIGHT IN REACH. WOUND VAC NOTED.
[2016-08-26 08:18] VITALS: BP 147/74
[2016-08-26 11:41] VITALS: BP 122/54
[2016-08-26 15:53] VITALS: BP 116/46
--- NOTE | 2016-08-26 18:03 | NUR ---
PT HAS BEEN UP WITH THERAPY TODAY AND DONE WELL. AMBULATED IN HALLWAY X 2. CURRENTLY IN CPM MACHINE WITH ICE TO LEFT KNEE. BED ALARM ON FOR SAFETY. CALL LIGHT IN REACH. HOPING FOR DISCHARGE TOMORROW
[2016-08-26 20:00] VITALS: BP 147/59
--- NOTE | 2016-08-26 20:00 | NUR ---
PATIENT IN BED ON CPM. HOB 15 DEGREES. AAOX4. RR EVEN AND UNLABORED. 0 S/S OF DISTRESS. STATES PAIN IS A 7/10. IV TO LEFT UPPER ARM S/L WITH NO REDNESS OR SWELLING. DRESSING TO LEFT KNEE CDI WITH WOUNDVAC. SCD'S ON. B/A ON. FAMILY AT BEDSIDE. SRX2. BED LOW. CALL LIGHT WITHIN REACH.
--- NOTE | 2016-08-26 20:30 | NUR ---
ASSESSMENT COMPLETE. NIGHTTIME MEDS GIVEN. PERCOCET GIVEN FOR PAIN.
--- NOTE | 2016-08-26 21:00 | NUR ---
PATIENT OFF CPM. CPAP ON.
[2016-08-27] VITALS: BP 128/56
[2016-08-27 04:00] VITALS: BP 136/77
[2016-08-27 05:33] LABS: BASOPHILS 0.1 % (0.0-2.0); EOSINOPHILS 3.3 % (0-7); HEMATOCRIT 30.6 % (42.0-54.0); HEMOGLOBIN 9.8 g/dL (13.5-17.5); IMMATURE GRANULOCYTES 0.3 % (0-5); MCH 28.1 pg (26.0-34.0); MCV 87.7 fL (80.0-100.0); MEAN PLATELET VOLUME 10.5 fL (7.4-10.4); MONOCYTES 15.4 % (2-11); NEUTROPHILS 66.9 % (40-80); PLATELET COUNT 139 10x3/uL (130-400); RBC 3.49 10x6/uL (4.20-6.10); RDW 14.4 % (11.5-14.5); WBC 9.3 10x3/uL (4.8-10.8)
[2016-08-27 05:43] LABS: CALC OSMOLALITY 279 mosm/kg (275-300); CARBON DIOXIDE 31.1 mmol/L (21.0-32.0); CHLORIDE - SERUM 103 mmol/L (98-107); GLUCOSE 98 mg/dL (74-106); POTASSIUM - SERUM 3.9 mmol/L (3.5-5.1); SODIUM 140 mmol/L (136-145); UREA NITROGEN 15 mg/dL (7-18); eGFR NON AFRICAN AMERICAN 77 mL/min (90-120)
--- NOTE | 2016-08-27 07:55 | NUR ---
AWAKE AND ALERT THIS MORNING. AT BEDSIDE AND CPM ON AND IN WORKING ORDER. SCD MACHING PLUGGED INTO POWER SOURCE AND TURNED ON. WOUND VAC TO LEFT KNEE INCISION FOR PROVENA WOUND VAC TURNED OFF. MACHINE TURNED ON AND NO LEAK FOUND. PAIN LEVEL 8/[address] JOSE QUINONES WITH DR ADAMS IN ROOM ASSESSING PATIENT. CALL LIGHT IN REACH, DENIES NEEDS AT PRESENT TIME. BED ALARM ON AND SRX2 WITH BED IN LOWEST POSITION AND WHEELS LOCKED. WILL CONTINUE WITH PLAN OF CARE.
[2016-08-27 07:58] VITALS: BP 129/40
[2016-08-27] MEDS ORDERED: ELIQUIS2.5 MG PO (08:33)
[2016-08-27] MEDS ORDERED: PERCOCET 10/3251 TA1 PO (08:33)
--- NOTE | 2016-08-27 09:40 | NUR ---
SCHEDULED MEDICATIONS ADMINISTERED AT THIS TIME. PRN NORCO ADMINISTERED PER ORDER FOR PAIN. UP IN CHAIR PER PHYSICAL THERAPY AT THIS TIME. PT TO D/C HOME WITH SPOUSE TODAY. ASSESSMENT PERFORMED PER FLOWSHEET. CALL LIGHT IN REACH, WILL CONTINUE WITH PLAN OF CARE. AT BEDSIDE.
--- NOTE | 2016-08-27 11:00 | NUR ---
HAD BM WITHOUT DIFFICULTY AT THIS TIME. BOTTOM IS PINK, BUT BLANCHABLE. LEVON'S BUTT PASTE APPLIED TO AREA. IV TO LEFT UPPER ARM D/C WITH CATH TIP INTACT. DISCHARGE INSTRUCTIONS REVIEWED WITH PT AND SPOUSE. DENIES QUESTIONS OR CONCERNS. PROVENA VAC APPLIED TO LEFT KNEE INCISION. CALL LIGHT IN REACH, WILL CONTINUE WITH PLAN OF CARE UNTIL PT IS READY FOR D/C. WAITING ON CPM TO BE DELIVERED.
[2016-08-27 11:39] VITALS: BP 147/66
--- NOTE | 2016-08-27 13:38 | NUR ---
08/27/2016 13:36 DCP: Discharge Planning Patient Name: HEIDI LIZAMA Encounter No: [id number] : 1940 Primary Insurance: MEDICARE A & B Anticipated DC Date: 08-27-2016 Planned Disposition: Home with Home Health External Planned Provider: [facility] DCP follow-up note: DC order rec'd. Patient and family in agreement with discharge plan. referral faxed and called to Sherri with [facility]. CPM has been delivered to hospital. No other needs identified or verbalized at this time. Pricilla Perez
--- NOTE | 2016-08-27 15:15 | NUR ---
DISCHARGED HOME WITH SPOUSE AND SON AT THIS TIME.
--- NOTE | 2016-08-28 14:00 | OP ---
PATIENT NAME: HEIDI LIZAMA MEDICAL RECORD: [id number] :40 LOCATION:D.MS [id number] ADMISSION DATE:08/24/16 SURGEON: SETH ADAMS MD DATE OF OPERATION: 08/24/2016 Orthopedic Surgery Operative Note PREOPERATIVE DIAGNOSIS: Degenerative arthritis of the left knee. POSTOPERATIVE DIAGNOSIS: Degenerative arthritis of the left knee. PROCEDURE: Left total knee arthroplasty. ANESTHESIA: General. INTRAOPERATIVE COMPLICATIONS: None. SUMMARY OF PATHOLOGIC FINDINGS: The patient did indeed have a very big Bazan's cyst that decompress nicely as a part of the total knee arthroplasty. IMPLANTS USED: [employer] triathlon total knee arthroplasty system CR size 6 distal femur, 11 mm X3 tibial insert, size 6, primary tibial baseplate and a 33 x 9 symmetric patella. ESTIMATED BLOOD LOSS: 50 cc. OPERATIVE SUMMARY IN DETAIL: After obtaining the appropriate preoperative orthopedic surgery consents as well as anesthetic consultation, evaluation and clearance, the patient was brought to the operating room and placed on table in supine position. After general laryngeal mask airway was administered, tourniquet was placed about the proximal aspect of the left lower extremity. Left lower extremity was then prepped and draped in routine sterile fashion. The leg was elevated and exsanguinated, tourniquet inflated to 350 mmHg. Midline incision was taken down for paramedian arthrotomy. Patella was everted, distal femur was exposed. Soft tissue excision was done in the usual fashion. Distal intramedullary guide hole was created for distal intramedullary distal femoral cuts. Proximal tibia in its entirety was exposed. At this point, copious amounts of the Bazan's cyst fluid were expressed. The intramedullary guide hole was created for the tibial cut. Tibial cut was made followed by chamfer cuts on the femur. Trials were put in corresponding to those above taken through range of motion and thought to be stable in all planes. Final distal femoral and proximal tibial preparations were made. This was followed by excision of the articular side of the arthritic articular surface of the patella. Final patellar preparations were made. At this point, the knee was put into high-flexion and the Bazan's cyst was cleaned out in its entirety and pulled in the front and portions of it were removed. Having completed this, the wound was then copiously irrigated. All excess bone fragments were removed. Final components were cemented into place. All excess cement was removed. After cement was allowed to harden, the knee was taken through range of motion and found to be stable in all planes. The paramedian arthrotomy was closed with #2 Ethibond in an interrupted [id number] fashion followed by #1 Vicryl, 2-0 Vicryl and skin félix. Sterile dressings were applied, Prevena dressing was applied given this man's significant amount of edema and his large leg. The patient was awakened, taken to recovery room in stable condition. All final needle and sponge counts were correct. OPERATIVE REPORT [id number] ALDAALFREDITOADRIANA KEILY TRANSINT:[id number] Voice Confirmation ID: [id number] DOCUMENT ID: [id number] BRYAN STACY, SETH IBARRA at 1400 CC: [id number] DICTATION DATE: 08/27/16 0953 ELECTRICIAN OFFICE: 08/27/16 1418 DIS IN 08/27/[id number] [place] [address]
== END 2016-08-27 15:15 | disposition home or self-care (01) | DRG 470 ==
LOC: D.MS 08-24 05:50 → D.SDCHOLD 08-24 05:50 → D.MS 08-24 09:25
PROVIDERS: Anesthesiology; Family Medicine; ADMIT Orthopaedic Surgery
PROC: 0SRD0J9 Replacement of Left Knee Joint with Synthetic Substitute, Cemented, Open Approach (ICD-10-PCS; principal; 2016-08-24 08:00)
DX: M17.12 Unilateral primary osteoarthritis, left knee (principal); Z68.42 Body mass index [BMI] 45.0-49.9, adult; D62 Acute posthemorrhagic anemia; E78.5 Hyperlipidemia, unspecified; M06.9 Rheumatoid arthritis, unspecified; E87.6 Hypokalemia; Z86.73 Personal history of transient ischemic attack (TIA), and cerebral infarction without residual deficits; E03.9 Hypothyroidism, unspecified; G47.00 Insomnia, unspecified; E66.01 Morbid (severe) obesity due to excess calories

== ENCOUNTER → 2016-08-19 13:44 | Outpatient (CLI) | payer MEDICARE, BC ==
[2016-07-16 08:24] VITALS: BMI 46.9
[~2016-08-19 13:44] MED LIST changes: +ASPIRIN325 MG PO; +ELIQUIS2.5 MG PO; +LASIX40 MG PO; +METOPROLOL TART25 MG PO; +PERCOCET 10/3251 TA1 PO; +TAMIFLU75 MG PO
== END | disposition home or self-care (01) ==
LOC: D.US 13:44
DX: M79.605 Pain in left leg (principal); R60.0 Localized edema

== ENCOUNTER → 2016-09-24 11:35 | Outpatient (CLI) | payer MEDICARE, BC ==
[2016-08-24 11:27] VITALS: BMI 48.5
== END | disposition home or self-care (01) ==
LOC: D.US 11:35
DX: M79.605 Pain in left leg (principal); R60.0 Localized edema

== ENCOUNTER 2016-09-26 00:12 | Inpatient (IN) | payer MEDICARE, BC ==
[~2016-09-26] VITALS: Ht 167.6 cm; Wt 138.4 kg
[~2016-09-26 00:12] MED LIST changes: -ASPIRIN325 MG PO; -LASIX40 MG PO; -TAMIFLU75 MG PO
[2016-09-26 02:09] LABS: BASOPHILS 0.1 % (0.0-2.0); EOSINOPHILS 0.7 % (0-7); HEMOGLOBIN 10.8 g/dL (13.5-17.5); IMMATURE GRANULOCYTES 0.3 % (0-5); LYMPHOCYTES 10.6 % (15-50); MCH 27.4 pg (26.0-34.0); MCHC 31.8 g/dL (31.0-37.0); MCV 86.3 fL (80.0-100.0); MEAN PLATELET VOLUME 10.3 fL (7.4-10.4); MONOCYTES 10.5 % (2-11); NEUTROPHILS 77.8 % (40-80); PLATELET COUNT 138 10x3/uL (130-400); RBC 3.94 10x6/uL (4.20-6.10); RDW 15.1 % (11.5-14.5); WBC 6.7 10x3/uL (4.8-10.8)
[2016-09-26 02:26] LABS: APPEARANCE HAZY (CLEAR); BILIRUBIN NEGATIVE (NEGATIVE); COLOR YELLOW (YELLOW); EPITHELIAL CELLS 0-5 /hpf (0-5); GLUCOSE NEGATIVE (NEGATIVE); KETONE NEGATIVE (NEGATIVE); LEUKOCYTE ESTERASE TRACE (NEGATIVE); NITRITE NEGATIVE (NEGATIVE); PROTEIN NEGATIVE (NEGATIVE); RED CELLS - URINE 0-5 /hpf (0-5); SPECIFIC GRAVITY 1.025 (1.005-1.020); UROBILINOGEN NORMAL (NORMAL)
[2016-09-26 02:32] LABS: ALBUMIN 3.3 g/dL (3.4-5.0); ALKALINE PHOSPHATASE 89 U/L (46-116); ALT (SGPT) 15 U/L (10-68); BILIRUBIN - TOTAL 0.33 mg/dL (0.2-1.3); CALC OSMOLALITY 277 mosm/kg (275-300); CALCIUM 8.2 mg/dL (8.5-10.1); CARBON DIOXIDE 28.5 mmol/L (21.0-32.0); CHLORIDE - SERUM 103 mmol/L (98-107); CREATININE - SERUM 1.1 mg/dL (0.6-1.3); GLUCOSE 130 mg/dL (74-106); POTASSIUM - SERUM 4.1 mmol/L (3.5-5.1); PROTEIN - SERUM 6.8 g/dL (6.4-8.2); SODIUM 138 mmol/L (136-145); UREA NITROGEN 13 mg/dL (7-18); eGFR NON AFRICAN AMERICAN 69 mL/min (90-120)
[2016-09-26 02:37] LABS: AMYLASE - SERUM 26 U/L (25-115); LIPASE 71 U/L (73-393); MAGNESIUM - SERUM 1.6 mg/dL (1.8-2.4); PHOSPHOROUS 2.6 mg/dL (2.5-4.9)
[2016-09-26 02:39] LABS: TROPONIN-I < 0.017 ng/mL (0.000-0.060)
[2016-09-26 04:00] VITALS: BP 140/65
[2016-09-26] MEDS ORDERED: ASPIRIN325 MG PO (04:58)
--- NOTE | 2016-09-26 05:29 | NUR ---
PT ARRIVED VIA STRETCHER FROM ER @ 0430 THIS AM, AWAKE, ALERT, ORIENTED, AT BEDSIDE. PT C/O INCREASED SOB, FEVER, CHEST PAIN, AND WAS + FOR FLU A. PT DENIES ANY ACUTE NEEDS AT THIS TIME. PT WAS PLACED IN REVERSE ISOLATION ROOM WITH DROPLET PRECAUTIONS PLACED IMMEDIATELY. IS A GOOD HEALTH HISTORIAN FOR HER . CONTINUE TO MONITOR CLOSELY. BED LOW, CALL LIGHT IN REACH, SIDE RAILS X 2, HOB 20 DEGREES.
[2016-09-26 05:50] VITALS: BP 140/65; Ht 167.6 cm; Wt 138.4 kg
--- NOTE | 2016-09-26 08:27 | NUR ---
ASSESSMENT DONE. PT A/O. HEALTH PSYCHOLOGIST ASSIST PT WITH AMB TO BATHROOM. NO DISTRESS NOTED. PT COUGHING. CALL LIGHT WITH IN REACH. WILL CONT. TO MONITOR.
[2016-09-26 08:28] LABS: CKMB 0.7 U/L (0.0-3.6); CREATINE KINASE 632 UL (21-232)
[2016-09-26 08:32] LABS: TROPONIN-I < 0.017 ng/mL (0.000-0.060)
[2016-09-26 09:04] VITALS: BP 124/56
--- NOTE | 2016-09-26 10:01 | NUR ---
2ND IV INSTERTED FOR CTA. 20G TO PT'S RT AC X1 STICK. PT TOLERATED WELL. ATTEMPTED TO CALL AMARIS AT CT TO NOTIFY. NO ANSWER.
--- NOTE | 2016-09-26 10:24 | NUR ---
ATTEMPTED TO CONTACT AMARIS IN CT THREE MORE TIME TO LET HER KNOW PT NOW HAS 20G IV FOR CTA, NO ANSWER AT THE EXT SHE GAVE ME [phone]
--- NOTE | 2016-09-26 11:28 | NUR ---
PT TO CT VIA W/C
--- NOTE | 2016-09-26 12:05 | NUR ---
PT BACK FROM CT. IV TO RT AC INFILTRATED D/T IV CONTRAST. NURSE REMOVED.
[2016-09-26 12:12] VITALS: BP 123/58
--- NOTE | 2016-09-26 13:52 | NUR ---
DIRECTOR OF STUDENT FINANCIAL SERVICES ASSISTED PT TO BATHROOM. WHILE PT SITTING ON TOILET HE URINATED IN THE FLOOR, BUT WAS UNAWARE HE URINATED. PT STATES " I AM STEPPING IN SOMETHING WET." DIRECTOR OF STUDENT FINANCIAL SERVICES ASSISTED PT WITH CHANGEING GOWN D/T IT BEING WET WITH URINE WELL. AND ASSITED PT BACK TO BED. URINAL PLACED WITHIN PT'S REACH. CALL LIGHT WITH IN REACH. WILL CONT. TO MONITOR.
[2016-09-26 14:26] LABS: CKMB 0.7 U/L (0.0-3.6); CREATINE KINASE 696 UL (21-232)
[2016-09-26 14:38] LABS: TROPONIN-I < 0.017 ng/mL (0.000-0.060)
[2016-09-26 16:25] VITALS: BP 123/57
--- NOTE | 2016-09-26 17:00 | NUR ---
PT LAYING IN BED, HOB ELEVATED. WEARING O2 VIA NC. COUGHING, C/O "NOT BEING ABLE TO GET ANYTHING UP" WHEN HE COUGHS. DENIES NEEDS AT THIS TIME. URINAL AND CALL LIGHT WITH IN REACH. WILL CONT. TO MONITOR.
--- NOTE | 2016-09-26 18:20 | NUR ---
PT IS ALERT. NO SS OF DISTRESS AT THIS TIME. WILL CONTINUE TO MOTNIOR.
--- NOTE | 2016-09-26 19:33 | NUR ---
PT IS RESTING IN BED WITH EYES OPEN. ALERT AND ORIENTED X 3. DENIES ACUTE DISCOMFORT AT THIS TIME. NO SOB NOTED. DROPLETT PRECAUTIONS OBSERVED. 02 IS ON @ 2LPM PER NC. IV INFUSING TO LEFT HAND. SR'S ARE UP X 3 IN BED. CALL LIGHT AND BEDSIDE TABLE ARE WITHIN EASY REACH.
[2016-09-26 19:46] LABS: CKMB 0.5 U/L (0.0-3.6); CREATINE KINASE 688 UL (21-232)
[2016-09-26 19:51] LABS: TROPONIN-I < 0.017 ng/mL (0.000-0.060)
[2016-09-26 20:19] VITALS: BP 126/50
--- NOTE | 2016-09-26 22:16 | NUR ---
PT IS RESTING QUIETLY IN BED WITH EYES CLOSED. RESPS ARE EVEN AND UNLABORED. NO ACUTE DISTRESS NOTED.
--- NOTE | 2016-09-27 00:10 | NUR ---
PT IS RESTING IN BED WITH EYES CLOSED.
[2016-09-27 00:46] VITALS: BP 127/60
--- NOTE | 2016-09-27 03:39 | NUR ---
RESTING IN BED WITH EYES CLOSED. NO ACUTE DISTRESS NOTED.
[2016-09-27 04:23] VITALS: BP 134/63
[2016-09-27 04:55] LABS: BASOPHILS 0.2 % (0.0-2.0); EOSINOPHILS 1.3 % (0-7); HEMATOCRIT 32.6 % (42.0-54.0); HEMOGLOBIN 10.7 g/dL (13.5-17.5); IMMATURE GRANULOCYTES 0.4 % (0-5); LYMPHOCYTES 26.3 % (15-50); MCH 28.3 pg (26.0-34.0); MCHC 32.8 g/dL (31.0-37.0); MCV 86.2 fL (80.0-100.0); MEAN PLATELET VOLUME 10.3 fL (7.4-10.4); MONOCYTES 18.4 % (2-11); NEUTROPHILS 53.4 % (40-80); PLATELET COUNT 135 10x3/uL (130-400); RBC 3.78 10x6/uL (4.20-6.10)
[2016-09-27 05:00] LABS: WBC 4.6 10x3/uL (4.8-10.8)
[2016-09-27 05:03] LABS: ANION GAP 11.6 mmol/L (8-16); CALCIUM 8.5 mg/dL (8.5-10.1); CARBON DIOXIDE 28.2 mmol/L (21.0-32.0); CREATININE - SERUM 1.2 mg/dL (0.6-1.3); POTASSIUM - SERUM 3.8 mmol/L (3.5-5.1)
[2016-09-27 09:00] VITALS: BP 158/68
--- NOTE | 2016-09-27 09:00 | HP ---
PATIENT: HEIDI LIZAMA MEDICAL RECORD: [id number] ACCOUNT: [id number] LOCATION:. D.2140 : 40 ADMISSION DATE: 09/26/16 HISTORY AND PHYSICAL EXAMINATION DATE OF ADMISSION: 09/26/2016 CHIEF COMPLAINT: Elevated temperature, cough, congestion and shortness of breath. HISTORY OF PRESENT ILLNESS: A 76-year-old gentleman, who in the past couple of weeks has had what he and thought had been sinus infection. He had had a mild cough, congestion, some yellow green nasal drainage, but developed fever up to 102, presented to the Emergency Room where he was found to have influenza A. The patient is therefore admitted. PAST MEDICAL HISTORY: Significant that he has recently had a left total knee replacement approximately 4 weeks ago. He has had a history of having hypertension and hyperlipidemia. He has had a CVA. He has also had rheumatoid arthritis. He has had a history of having sleep apnea, as well as having morbid obesity. FAMILY HISTORY: Significant for having a cerebrovascular accident, myocardial infarction in the father, also diabetes mellitus. SOCIAL HISTORY: The patient is a nonsmoker. 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 Occasional alcoholic beverage. ALLERGIES: He has no known drug allergies. MEDICATIONS: Includes Aricept 5 mg 1 p.o. q. day, aspirin 325, Breo Ellipta 100/25 mcg one puff q. day, Bumex 1 mg p.o. b.i.d., Plavix 75 mg once a day, Lexapro 20 mg once a day, hydrochlorothiazide 12.5 mg once a day, [place] 10/325 one p.o. q.4 hours p.r.n. severe pain, levothyroxine 75 mcg once a day, meloxicam 15 mg 1 p.o. q. day, metoprolol tartrate 50 mg p.o. half tablet b.i.d., Protonix 40 mg once a day, KCl 20 mEq once a day, pravastatin 40 mg once a day, Flomax 0.4 mg once a day, trazodone 75 mg once a day and Ventolin inhaler 2 puffs q.4 hours p.r.n. for shortness of breath. REVIEW OF SYSTEMS: GENERAL: He denies any headaches, seizure, or syncope. Denied change in visual or auditory acuity. PULMONARY: He has reported having cough and congestion. He has had fever up to 102. CARDIOVASCULAR: He has had no chest pain, palpitation, PND or orthopnea. GASTROINTESTINAL: No chronic nausea, vomiting, melena, or hematochezia. GENITOURINARY: No urgency, frequency, or dysuria. EXTREMITIES: The patient does report having swelling in the lower extremities. He apparently saw an orthopedist last week. He ordered a venous Doppler of lower extremities, which was unremarkable. ASSESSMENT: Influenza A, history of morbid obesity, recent left knee replacement, negative for pulmonary embolus, hypertension, hypothyroidism and depression. HISTORY AND PHYSICAL [id number] HEIDI LIZAMA PLAN: The patient will be admitted for supportive therapy, placed on Tamiflu 75 mg p.o. b.i.d. Also, the patient will be placed on Augmentin 875 one p.o. q.12 hours for sinus infection. Also, the patient will be given a mild diuretic to decrease swelling in the lower extremities. TRANSINT:[id number] Voice Confirmation ID: [id number] DOCUMENT ID: [id number] SETH SALAMANCA MD at 0900 CC: [id number] DICTATION DATE: 09/26/16 1119 WINERY CELLAR HAND: 09/26/16 1313 [place] [address]
[2016-09-27 16:00] VITALS: BP 129/48
--- NOTE | 2016-09-27 17:38 | NUR ---
ALERT AND ORIENTED X4. RESTING IN BED. AT BEDSIDE. AMBULATES TO RESTROOM WITH OUT DIFFICULTY. SOB TREATED WITH O2 @ 2L NC. DENIES PAIN. CONTINUE PLAN OF CARE AND SAFETY PRECAUTIONS.
[2016-09-27 20:00] VITALS: BP 128/58
--- NOTE | 2016-09-27 20:03 | NUR ---
RECEIVED IN BEDROOM. LAYING IN BED WITH EYES OPEN. DENIES PAIN AT THIS TIME. ALERT AND ORIENTED. ENCOURAGE TO EXPRESS NEEDS. CALL LIGHT IN REACH
[2016-09-28] VITALS: BP 116/89
--- NOTE | 2016-09-28 01:47 | NUR ---
RESTING IN BED WITH EYES CLOSED. NO SIGNS OF DISTRESS. CALL LIGHT IN REACH
[2016-09-28 04:00] VITALS: BP 162/69
[2016-09-28 05:00] LABS: BASOPHILS 0.3 % (0.0-2.0); EOSINOPHILS 4.8 % (0-7); HEMOGLOBIN 10.5 g/dL (13.5-17.5); IMMATURE GRANULOCYTES 0.3 % (0-5); LYMPHOCYTES 36.1 % (15-50); MCH 27.3 pg (26.0-34.0); MCHC 31.8 g/dL (31.0-37.0); MCV 85.9 fL (80.0-100.0); MEAN PLATELET VOLUME 10.3 fL (7.4-10.4); MONOCYTES 18.6 % (2-11); NEUTROPHILS 39.9 % (40-80); PLATELET COUNT 144 10x3/uL (130-400); RBC 3.84 10x6/uL (4.20-6.10); RDW 14.7 % (11.5-14.5); WBC 3.9 10x3/uL (4.8-10.8)
[2016-09-28 05:36] LABS: ANION GAP 10.7 mmol/L (8-16); CALCIUM 8.4 mg/dL (8.5-10.1); CARBON DIOXIDE 30.6 mmol/L (21.0-32.0); CREATININE - SERUM 1.3 mg/dL (0.6-1.3); POTASSIUM - SERUM 3.3 mmol/L (3.5-5.1)
[2016-09-28 08:00] VITALS: BP 118/74
[2016-09-28 12:00] VITALS: BP 126/46
--- NOTE | 2016-09-28 15:46 | NUR ---
AT BEDSIDE, DENIES NEEDS AT PRESENT TIME EXCEPT FOR TOWELS (LINEN CARTS ARE EMPTY). WILL CONTINUE TO MONITOR AND GIVE THEM TOWELS WHEN THEY ARE HERE.
[2016-09-28 16:00] VITALS: BP 153/55
[2016-09-28 21:40] VITALS: BP 142/64
--- NOTE | 2016-09-28 22:52 | NUR ---
PT AWAKE, ALERT, ORIENTED, SITTING IN CHAIR. PT STATES HE WOULD LIKE SOMETHING FOR COUGH, AND ALSO WANTS HIS 21:00 DIURETIC CHANGED TO AN EARLIER TIME, PT DOES NOT GET MUCH SLEEP TAKING IT SO LATE. DENIES ANY OTHER NEEDS. CONTINUE TO MONITOR CLOSELY.
[2016-09-29 02:00] VITALS: BP 143/93
[2016-09-29 03:52] LABS: BASOPHILS 0.5 % (0.0-2.0); EOSINOPHILS 6.4 % (0-7); HEMATOCRIT 30.7 % (42.0-54.0); HEMOGLOBIN 9.8 g/dL (13.5-17.5); IMMATURE GRANULOCYTES 0.2 % (0-5); LYMPHOCYTES 37.2 % (15-50); MCH 27.3 pg (26.0-34.0); MCHC 31.9 g/dL (31.0-37.0); MCV 85.5 fL (80.0-100.0); NEUTROPHILS 41.7 % (40-80); PLATELET COUNT 147 10x3/uL (130-400); RBC 3.59 10x6/uL (4.20-6.10); RDW 14.6 % (11.5-14.5); WBC 4.2 10x3/uL (4.8-10.8)
[2016-09-29 04:05] LABS: CALC OSMOLALITY 282 mosm/kg (275-300); CALCIUM 8.4 mg/dL (8.5-10.1); CARBON DIOXIDE 29.1 mmol/L (21.0-32.0); CHLORIDE - SERUM 105 mmol/L (98-107); POTASSIUM - SERUM 3.5 mmol/L (3.5-5.1); SODIUM 141 mmol/L (136-145); UREA NITROGEN 19 mg/dL (7-18); eGFR NON AFRICAN AMERICAN 77 mL/min (90-120)
[2016-09-29 04:07] LABS: GLUCOSE 106 mg/dL (74-106)
[2016-09-29] MEDS ORDERED: TAMIFLU75 MG PO (07:37)
[2016-09-29] MEDS ORDERED: LASIX40 MG PO (07:38)
--- NOTE | 2016-09-29 08:02 | NUR ---
0730-IN DROPLET PRECAUTIONS FOR FLU, FOR POSSIBLE DISCHARGE TODAY. DENIES NEEDS AT PRESENT TIME. ON 2L PER NC, CPAP AT BEDSIDE. LEFT FA SEEN WITH NS INFUSING AT 75 CC/HR. ON EP, LAB VALUES ARE GOOD. LEFT LEG IS 4+ EDEMA TO TOES, PATIENT STATES "BETTER THAN NORMAL".
[2016-09-29 08:19] VITALS: BP 169/77
--- NOTE | 2016-09-29 08:52 | NUR ---
Patient Name: HEIDI LIZAMA Admission Status: ER Accout number: [id number] Admission Date: 09-26-2016 : 1940 Admission Diagnosis: Attending: TREVA Current LOS: 3 Anticipated DC Date: 09-29-2016 Planned Disposition: Home Primary Insurance: MEDICARE A & B Discharge Planning Comments: * Is the patient Alert and Oriented? Yes 0 * How many steps to enter\exit or inside your home? 2 0 * PCP DR. SALAMANCA 0 * Pharmacy [facility] 0 * Preadmission Environment Home with Family 0 * ADLs Partial Dependent 0 * Partial ADLs (Assistance needed) Medication Management 0 * Equipment Cane CPAP Rolling Walker 0 * Other Equipment UNKNOWN MEDICAL EQUIPMENT PROVIDER - NO PREFERENCE ON PROVIDER 0 * List name and contact numbers for known caregivers / representatives who currently or will assist patient after discharge: ANGEL LIZAMA, SPOUSE, 0 * Community resources currently utilized Other 0 * Please name any agencies selected above. OUTPATIENT REHAB SERVICES, [facility]: ON WEEK 5 OF TOTAL KNEE REPLACEMENT PROGRAM 0 * Additional services required to return to the preadmission environment? No 0 * Can the patient safely return to the preadmission environment? Yes 0 * Has this patient been hospitalized within the prior 30 days at any hospital? Yes 0 CM MET WITH PT IN ROOM TO DISCUSS DISCHARGE PLANNING AND NEEDS. PT REPORTS LIVING AT HOME PARTIALLY DEPENDENT ON HIS SPOUSE WHO ASSIST WITH MEDICATION MANAGEMENT. PT HAS HAD A STROKE AND REPORTS HE IS SOMETIMES SLOW TO RESPOND VERBALLY. PT REPORTS HAVING ALL NEEDED MEDICAL EQUIPMENT AT HOME FROM UNKNOWN PROVIDER AND HAD HOME HEALTH WITH [facility] BUT WAS DISCHARGED TO OUTPATIENT REHAB HE IS ON WEEK 5 OF TOTAL KNEE REPLACEMENT PROGRAM. CM DISCUSSED AVAILABILITY OF HOME HEALTH, REHAB SERVICES AND MEDICAL EQUIPMENT. PT STATES HE WILL DISCHARGE HOME AND WILL CONTINUE HIS OUTPATIENT REHAB SERVICES. PT DENIES DISCHARGE NEEDS, REPORTS HIS WILL PICK HIM UP FOR DISCHARGE HOME. IMPORTANT MESSAGE FROM MEDICARE PROVIDED AND EXPLAINED. Exhibit Specialist: Cedric Corrales
--- NOTE | 2016-09-29 10:34 | NUR ---
SALINE LOCK REMOVED WITH CATH TIP INTACT. VERBAL AND WRITTEN DISCHARGE INSTRCUTIONS GIVEN TO PATIENT AND SPOUSE. DISCHARGED HOME VIA WHEELCHAIR.
--- NOTE | 2016-11-08 08:20 | DS ---
PATIENT:HEIDI LIZAMA :40 MEDICAL RECORD: [id number] DISCHARGE SUMMARY ADMISSION DATE: 09/26/16 DISCHARGE DATE: 09/29/16 DATE OF ADMISSION: 09/26/2016 DATE OF DISCHARGE: 09/29/2016 CONDITION ON DISCHARGE: Improved. ADMITTING DIAGNOSES: Influenza A, history of morbid obesity, recent left knee replacement, hypertension, and hypothyroidism. DISCHARGE DIAGNOSES: Fever, flu, morbid obesity, hyperlipidemia, rheumatoid arthritis, recent right knee replacement, and depression. HOSPITAL COURSE: The patient is a 76-year-old gentleman, who had complained of having cough and congestion. He had developed fever up to 102 in the Emergency Room, was found to have influenza A. It was felt that the patient should be admitted. PHYSICAL EXAMINATION: VITAL SIGNS: His temperature recently was 102. HEENT: Unremarkable. NECK: Supple. There is no adenopathy. HEART: Had regular rhythm. No murmurs, gallops or rubs. LUNGS: Clear. ABDOMEN: Soft. The bowel sounds are positive. LABORATORY DATA: The patient initially had a white count of 6.7, hemoglobin 10.8, hematocrit is 34, and platelets 138. The patient was admitted. He was placed on Lasix IV due to his dependent edema. He was placed on Rocephin 1 gram q.24 hours, also placed on Tamiflu 75 mg p.o. b.i.d. Slowly over the next couple of days, he did improve. On the , his white count 4.2, his hemoglobin 9.8, his hematocrit is 30.7 and his platelets were 147. He had a sodium of 141, potassium 3.7, chloride 105 and CO2 was 29, his BUN is 19, creatinine 0.9, his blood sugar was 106. The patient felt as if he was ready for discharge. He had been afebrile. Therefore, the patient was discharged home. He was to continue his 75 mg Tamiflu b.i.d. for a total of 5 days, Lasix 40 mg p.o. b.i.d., Flomax 0.4 mg p.o. q. day, Plavix 75 mg once a day, Tylenol 325, total of 2 every 4 hours p.r.n. temperature greater than 100.5, HCTZ 12.5 mg once a day, Synthroid 75 mcg once daily, Lexapro 20 mg once a day, K-Dur 20 mEq p.o. b.i.d., pravastatin 40 mg once a day, meloxicam 7.5 total of 2 p.o. q.h.s. p.r.n. pain, Desyrel 50 mg p.o. one and a half tablet p.o. q.h.s., Aricept 5 mg once a day, metoprolol tartrate 25 mg b.i.d., oxycodone 10/325 one every 4 hours p.r.n. severe pain, and aspirin 325 mg once a day. DISCHARGE INSTRUCTIONS: The patient was to be on a 2200 calorie ADA diet, 50 ounce daily oral fluid restriction. He would follow up with me on the . ACTIVITIES: Ad judson. TRANSINT:[id number] Voice Confirmation ID: [id number] DOCUMENT ID: [id number] DISCHARGE SUMMARY REPORT [id number] HEIDI LIZAMA JAMES MD at 0820 CC: [id number] DICTATION DATE: 11/07/16 1553 TECHNICAL ACCOUNT MANAGER: 11/08/16 0132 DIS IN 09/29/16 [facility] [address] [facility] [place] [address]
== END 2016-09-29 10:35 | disposition home or self-care (01) | DRG 153 ==
LOC: D.ER 00:12 → D.M2 03:58
PROVIDERS: Surgery; ADMIT Family Medicine
DX: J11.1 Influenza due to unidentified influenza virus with other respiratory manifestations (principal); Z68.42 Body mass index [BMI] 45.0-49.9, adult; I10 Essential (primary) hypertension; E78.5 Hyperlipidemia, unspecified; E66.01 Morbid (severe) obesity due to excess calories; M06.9 Rheumatoid arthritis, unspecified; E03.9 Hypothyroidism, unspecified; F32.9 Major depressive disorder, single episode, unspecified; Z96.651 Presence of right artificial knee joint; Z86.73 Personal history of transient ischemic attack (TIA), and cerebral infarction without residual deficits

== ENCOUNTER 2017-02-08 11:31 | Day surgery (SDC) | payer MEDICARE, BC ==
[~2017-02-08] VITALS: Ht 167.6 cm; Wt 136.4 kg
--- NOTE | ~2017-02-08 | OP ---
PATIENT NAME: HEIDI LIZAMA MEDICAL RECORD: [id number] :40 LOCATION:D.OPS ADMISSION DATE: SURGEON: ALEJANDRA BILL DO DATE OF OPERATION: 02/08/2017 PROCEDURE: Colonoscopy. INDICATIONS: Anemia, hematochezia, right upper quadrant abdominal pain. SCOPE: Olympus video pediatric colonoscope. MEDICATIONS: Propofol 450 mg IV per anesthesia. WITHDRAWAL TIME: 11 minutes. ESTIMATED BLOOD LOSS: None. COMPLICATIONS: None. FINDINGS: Informed consent was given. The patient was made comfortable with the above medication. After reaching an adequate level of sedation by slow IV push, the patient was placed on his left side. A digital rectal examination was performed and was normal. The endoscope was then advanced under direct visualization through the rectum to the cecum with visualization of the appendiceal orifice and ileocecal valve. The scope was slowly withdrawn and mucosa was carefully examined. The prep quality was excellent. There were no polyps visualized on this examination. There was also no specific etiology or source of bleeding visualized. There was evidence of mild diverticulosis involving the sigmoid colon without evidence of diverticulitis. Retroflexion was performed in the rectum with visualization of small nonbleeding internal hemorrhoids. The scope was withdrawn from the patient. The patient tolerated the procedure well and there were no complications. IMPRESSION: 1. Mild diverticulosis of the sigmoid colon. 2. Small nonbleeding internal hemorrhoids. PLAN AND RECOMMENDATIONS: 1. Discharge home when recovery parameters are met. 2. High fiber diet. 3. Continue current medications. 4. Recommend an upper endoscopy regarding the abdominal pain, melena and anemia. 5. Further recommendations to follow upper endoscopy. TRANSINT:[id number] Voice Confirmation ID: [id number] DOCUMENT ID: [id number] OPERATIVE REPORT [id number] HEIDI LIZAMA ALEJANDRA BILL DO CC: [id number] DICTATION DATE: 02/08/17 1525 USED CAR LOT ATTENDANT: 02/08/17 2346 [facility] 02/08/[address] [address]
[~2017-02-08 11:31] MED LIST changes: +ASPIRIN325 MG PO; +LASIX40 MG PO; +TAMIFLU75 MG PO
[2017-02-08 12:08] VITALS: BP 145/43; Ht 167.6 cm; Wt 136.4 kg
[2017-02-08 12:58] LABS: BASOPHILS 0.2 % (0-2); EOSINOPHILS 1.4 % (0-7); HEMATOCRIT 26.3 % (42.0-54.0); HEMOGLOBIN 8.4 g/dL (13.5-17.5); IMMATURE GRANULOCYTES 0.3 % (0-5); LYMPHOCYTES 16.6 % (15-50); MCH 27.3 pg (26.0-34.0); MCHC 31.9 g/dL (31.0-37.0); MCV 85.4 fL (80.0-100.0); MEAN PLATELET VOLUME 9.7 fL (7.4-10.4); MONOCYTES 12.1 % (2-11); NEUTROPHILS 69.4 % (40-80); RBC 3.08 10x6/uL (4.20-6.10); RDW 15.5 % (11.5-14.5); WBC 8.7 10x3/uL (4.8-10.8)
[2017-02-08 12:59] LABS: PLATELET COUNT 278 10x3/uL (130-400)
[2017-02-08 13:09] LABS: ANION GAP 11.8 mmol/L (8-16); CALCIUM 8.2 mg/dL (8.5-10.1); CARBON DIOXIDE 31.1 mmol/L (21.0-32.0); CREATININE - SERUM 1.2 mg/dL (0.6-1.3); POTASSIUM - SERUM 3.9 mmol/L (3.5-5.1)
== END 2017-02-08 16:39 | disposition home or self-care (01) ==
LOC: D.OPS 11:31
PROVIDERS: Anesthesiology
DX: R10.11 Right upper quadrant pain (principal); D64.9 Anemia, unspecified; K92.1 Melena; K64.8 Other hemorrhoids; K57.30 Diverticulosis of large intestine without perforation or abscess without bleeding; Z01.812 Encounter for preprocedural laboratory examination

== ENCOUNTER 2017-02-11 09:53 | Day surgery (SDC) | payer MEDICARE, BC ==
[~2017-02-11] VITALS: Ht 167.6 cm; Wt 136.4 kg
[2017-02-11 11:12] LABS: HEMATOCRIT 24.9 % (42.0-54.0); HEMOGLOBIN 7.8 g/dL (13.5-17.5); MCH 26.5 pg (26.0-34.0); MCHC 31.3 g/dL (31.0-37.0); MCV 84.7 fL (80.0-100.0); MEAN PLATELET VOLUME 9.3 fL (7.4-10.4); RBC 2.94 10x6/uL (4.20-6.10); RDW 15.8 % (11.5-14.5)
[2017-02-11 11:13] VITALS: BP 117/55; Ht 167.6 cm; Wt 136.4 kg
--- NOTE | 2017-02-11 12:47 | NUR ---
1230-RECD TO ROOM FROM . 1235- VOISE HERE TO REPORT FINDINGS. 1240-FULL LIQUIDS SERVED
--- NOTE | 2017-02-11 12:58 | NUR ---
ON ARRIVAL REPORTED HGB AND HCT LOW DOES NOT WANT TO TRANSFUSE BLOOD.
[2017-02-11 14:08] LABS: ANION GAP 10.7 mmol/L (8-16); CALCIUM 8.3 mg/dL (8.5-10.1); CARBON DIOXIDE 27.4 mmol/L (21.0-32.0); CREATININE - SERUM 1.1 mg/dL (0.6-1.3); POTASSIUM - SERUM 4.1 mmol/L (3.5-5.1)
--- NOTE | 2017-02-11 15:43 | NUR ---
1315-D/C HOME VIA WHEELCHAIR.
--- NOTE | 2017-02-15 08:17 | OP ---
PATIENT NAME: HEIDI LIZAMA MEDICAL RECORD: [id number] :40 LOCATION:BRAD ADMISSION DATE: SURGEON: ALEJANDRA BILL DO DATE OF OPERATION: 02/11/2017 PROCEDURE: EGD with biopsies. INDICATIONS: Heartburn, right upper quadrant abdominal pain, and anemia. SCOPE: Voxy video gastroscope. MEDICATIONS: Propofol 140 mg IV per anesthesia. ESTIMATED BLOOD LOSS: Minimal. COMPLICATIONS: None. FINDINGS: Informed consent was given. The patient was made comfortable with the above medication. After reaching an adequate level of sedation by slow IV push, the patient was placed on his left side. The endoscope was then advanced under direct visualization through the mouth to the second portion of the duodenum. The upper, middle, and lower thirds of the esophagus appeared normal. At the GE junction, there was evidence of LA class A reflux induced esophagitis with a few minor breaks in the Z line, less than 5 mm in length. The endoscope was advanced beyond the GE junction into the stomach and retroflexed to view the cardia, where a small sliding hiatal hernia was present. The fundus and body of the stomach appeared normal. In the antrum and prepyloric region, there was some erythema and granularity consistent with gastritis. There were also multiple superficial small ulcerations consistent with NSAID-induced ulcers. One was slightly larger and deeper and probably the source of recent melena. It was not actively bleeding and had a clean base. Random biopsies were taken to submit for histology and to rule out H. pylori. The endoscope was then advanced beyond the pylorus into the duodenum where the bulb and second portion of the duodenum appeared normal. The scope was withdrawn from the patient. The patient tolerated the procedure well and there were no complications. IMPRESSION: 1. LA class A reflux-induced esophagitis. 2. Small sliding hiatal hernia. 3. Erythema and granularity of the antrum and prepyloric region of the stomach consistent with gastritis, biopsies taken. 4. Multiple gastric ulcers likely related to NSAID injury, the largest of these is likely the cause of recent melena. PLAN AND RECOMMENDATIONS: 1. Discharge home when recovery parameters are met. 2. Continue current diet. 3. Continue current medications. 4. Minimize use of NSAIDs including Meloxicam as tolerated. 5. Restart Protonix 40 mg b.i.d. times 30 days followed by 40 mg daily for another 30 days. 6. Restart Carafate tablets 1 gram p.o. q.i.d. times 2 weeks. 7. Okay to resume Plavix in 7 days. TRANSINT:[id number] Voice Confirmation ID: [id number] DOCUMENT ID: [id number] OPERATIVE REPORT [id number] HEIDI LIZAMA NATHAN A DO at 0817 CC: [id number] DICTATION DATE: 02/11/17 1226 VICE PRESIDENT [employer]IDENT[employer]ES: 02/11/17 1251 [facility] 02/11/17 [address] [place] [address]
== END 2017-02-11 13:15 | disposition home or self-care (01) ==
LOC: D.OPS 09:53
PROVIDERS: Anesthesiology
DX: R10.9 Unspecified abdominal pain (principal); D64.9 Anemia, unspecified; G47.30 Sleep apnea, unspecified; I25.10 Atherosclerotic heart disease of native coronary artery without angina pectoris; K21.0 Gastro-esophageal reflux disease with esophagitis; K44.9 Diaphragmatic hernia without obstruction or gangrene; K25.9 Gastric ulcer, unspecified as acute or chronic, without hemorrhage or perforation; Z01.812 Encounter for preprocedural laboratory examination

== ENCOUNTER → 2017-03-24 09:14 | Outpatient (CLI) | payer MEDICARE, BC ==
[2017-02-11 11:13] VITALS: BMI 48.5
== END ==
LOC: D.CT 03-23 13:51
DX: R31.9 Hematuria, unspecified (principal)

== ENCOUNTER → 2017-03-24 09:33 | Outpatient (CLI) | payer MEDICARE, BC ==
[2017-02-11 11:13] VITALS: BMI 48.5
== END | disposition home or self-care (01) ==
LOC: D.MRI 09:30
DX: N28.9 Disorder of kidney and ureter, unspecified (principal); R31.9 Hematuria, unspecified

== ENCOUNTER 2017-05-10 06:24 | Day surgery (SDC) | payer MEDICARE, BC ==
[~2017-05-10 06:24] MED LIST changes: +SYNTHROID100 MCG PO; -SYNTHROID75 MCG PO
[2017-05-10] MEDS ORDERED: K-DUR20 MEQ (06:56)
[2017-05-10 07:07] LABS: HEMATOCRIT 44.3 % (42.0-54.0); HEMOGLOBIN 13.8 g/dL (13.5-17.5); MCH 26.5 pg (26.0-34.0); MCHC 31.2 g/dL (31.0-37.0); MEAN PLATELET VOLUME 10.4 fL (7.4-10.4); RBC 5.21 10x6/uL (4.20-6.10); RDW 15.4 % (11.5-14.5); WBC 8.1 10x3/uL (4.8-10.8)
[2017-05-10 07:08] VITALS: BP 120/61; BMI 50.9
--- NOTE | 2017-05-10 08:56 | NUR ---
0820-RECD TO ROOM FROM GI LAB. ALERT. DR BILL IN TO REPORT FINDINGS. 0855-ULTRASOUND IN ROOM. FAMILY AT BEDSIDE.
--- NOTE | 2017-05-10 10:15 | NUR ---
1000-IV D/C, VOIDS, DRESSES AND D/C INSTRUCTIONS REVIEWED. 1010-D/C HOME VIA WHEELCHAIR
--- NOTE | 2017-05-10 12:21 | OP ---
PATIENT NAME: HEIDI LIZAMA MEDICAL RECORD: [id number] :40 LOCATION:BRAD ADMISSION DATE: SURGEON: ALEJANDRA BILL DO DATE OF OPERATION: 05/10/2017 PROCEDURE: EGD with biopsies. INDICATIONS FOR PROCEDURE: History of gastric ulcers, right upper quadrant abdominal pain, anemia, gas and bloating. SCOPE: Olympus video gastroscope. MEDICATIONS: Propofol 130 mg IV per anesthesia. ESTIMATED BLOOD LOSS: Minimal. COMPLICATIONS: None. FINDINGS: Informed consent was given. The patient was made comfortable with the above medication. After reaching an adequate level of sedation by slow IV push, the patient was placed on his left side. The endoscope was then advanced under direct visualization through the mouth to the second portion of the duodenum. The upper, middle, and lower thirds of the esophagus appeared normal. At the GE junction, there was some evidence of LA class A reflux induced esophagitis without erosions or ulcerations. The endoscope was advanced beyond the GE junction into the stomach and retroflexed to view the cardia, where a small sliding hiatal hernia was present. There were a few patchy areas of erythema and granularity throughout the body of the stomach and down to the antrum and prepyloric region. Findings were consistent with possible gastritis. Biopsies were taken to submit for histology and to rule out H. pylori. In the antrum and prepyloric region, there were multiple superficial and small ulcerations consistent with NSAID use. The endoscope was passed beyond the pylorus into the duodenum where the bulb and second portion of the duodenum appeared normal. Random biopsies were taken from the small bowel, based on the patient's symptoms. The scope was then withdrawn from the patient. The patient tolerated the procedure well and there were no complications. IMPRESSION: 1. LA class A reflux-induced esophagitis. 2. Small sliding hiatal hernia. 3. Erythema and granularity in a patchy distribution in the stomach consistent with gastritis. Biopsies pending. 4. Multiple small, superficial gastric ulcers in the antrum and prepyloric region, consistent with NSAID effect. PLAN AND RECOMMENDATIONS: 1. Discharge home when recovery parameters are met. 2. Follow up biopsy specimen results. 3. Continue current medications including Protonix 40 mg daily. 4. Minimize use of NSAIDs including Meloxicam. 5. Recommend a right upper quadrant ultrasound with a PIPIDA scan to follow if it is normal. 6. Further recommendations to follow findings of ultrasound and PIPIDA scan. OPERATIVE REPORT [id number] HEIDI LIZAMA TRANSINT:[id number] Voice Confirmation ID: [id number] DOCUMENT ID: [id number] ALEJANDRA BILL DO at 1221 CC: [id number] DICTATION DATE: 05/10/17 08 WELDER/INSTALLER: 05/10/17 1106 [facility] 05/10/17 [id number] [place] [address]
[2017-05-31] MEDS ORDERED: PEPCID40 MG PO (10:57)
[2017-05-31] MEDS ORDERED: PROSCAR5 MG PO (10:58)
[2017-05-31] MEDS ORDERED: PROTONIX40 MG PO (10:59)
[2017-05-31] MEDS ORDERED: NEXIUM40 MG PO (11:01)
== END 2017-05-10 10:10 | disposition home or self-care (01) ==
LOC: D.OPS 06:24
PROVIDERS: Anesthesiology
DX: R10.11 Right upper quadrant pain (principal); D64.9 Anemia, unspecified; K21.0 Gastro-esophageal reflux disease with esophagitis; K44.9 Diaphragmatic hernia without obstruction or gangrene; K25.9 Gastric ulcer, unspecified as acute or chronic, without hemorrhage or perforation; Z01.812 Encounter for preprocedural laboratory examination; I25.10 Atherosclerotic heart disease of native coronary artery without angina pectoris; E03.9 Hypothyroidism, unspecified; G47.30 Sleep apnea, unspecified

== ENCOUNTER → 2017-05-21 08:22 | Outpatient (CLI) | payer MEDICARE, BC ==
[2017-05-10 07:08] VITALS: BMI 50.9
[~2017-05-21 08:22] MED LIST changes: +HYDROCODONE-APA1 TAB PO; +K-DUR20 MEQ; +NEXIUM40 MG PO; +PEPCID40 MG PO; +PROSCAR5 MG PO; +PROTONIX40 MG PO
== END | disposition home or self-care (01) ==
LOC: D.NM 08:22
DX: R10.11 Right upper quadrant pain (principal)

== ENCOUNTER 2017-06-01 05:05 | Day surgery (SDC) | payer MEDICARE, BC ==
[2017-05-31 10:50] LABS: BASOPHILS 0.3 % (0-2); EOSINOPHILS 1.6 % (0-7); HEMATOCRIT 47.9 % (42.0-54.0); HEMOGLOBIN 14.9 g/dL (13.5-17.5); IMMATURE GRANULOCYTES 0.5 % (0-5); LYMPHOCYTES 16.1 % (15-50); MCH 26.3 pg (26.0-34.0); MCHC 31.1 g/dL (31.0-37.0); MCV 84.6 fL (80.0-100.0); MEAN PLATELET VOLUME 10.3 fL (7.4-10.4); NEUTROPHILS 68.5 % (40-80); PLATELET COUNT 203 10x3/uL (130-400); RBC 5.66 10x6/uL (4.20-6.10); RDW 15.4 % (11.5-14.5)
[2017-05-31 11:08] LABS: CALCIUM 9.1 mg/dL (8.5-10.1); CARBON DIOXIDE 28.4 mmol/L (21.0-32.0); CREATININE - SERUM 1.2 mg/dL (0.6-1.3); POTASSIUM - SERUM 4.4 mmol/L (3.5-5.1)
[~2017-06-01] VITALS: Ht 320 cm; Wt 142.9 kg
[~2017-06-01 05:05] MED LIST changes: -HYDROCODONE-APA1 TAB PO
[2017-06-01 06:22] VITALS: BP 155/59; Ht 320 cm; Wt 142.9 kg
[2017-06-01] MEDS ORDERED: HYDROCODONE-APA1 TAB PO (09:00)
--- NOTE | 2017-06-22 12:19 | OP ---
PATIENT NAME: HEIDI LIZAMA MEDICAL RECORD: [id number] :40 LOCATION:[facility] ADMISSION DATE: SURGEON: STEFFEN SANTIAGO MD DATE OF OPERATION: 06/01/2017 PREOPERATIVE DIAGNOSES: 1. Biliary dyskinesia. 2. Hypertension. 3. Hypothyroidism. 4. Peptic ulcer disease. 5. History of CVA. 6. Morbid obesity with BMI of 50.9. POSTOPERATIVE DIAGNOSES: 1. Biliary dyskinesia. 2. Hypertension. 3. Hypothyroidism. 4. Peptic ulcer disease. 5. History of CVA. 6. Morbid obesity with BMI of 50.9. PROCEDURE: Laparoscopic cholecystectomy. SURGEON: Steffen Santiago MD REPORT OF PROCEDURE: The patient's abdomen was prepped and draped in sterile fashion. A cutdown was made on the superior aspect of the umbilicus, 0 Vicryls were placed in the fascia bilaterally and the fascia was incised with 15-blade. I then bluntly entered the peritoneal cavity and placed a 12-mm Petey port. Under direct visualization, a 5 mm trocar was placed in the epigastrium and 2 more 5-mm trocars were placed in the right subcostal region. The gallbladder was elevated. There was noted to be a lot of inflammatory adhesions of the fatty tissue to the gallbladder. These were teased down carefully with blunt dissection. The cystic artery and cystic duct were dissected free and these were clipped proximally and distally and ligated in standard fashion. The gallbladder was then taken off the liver bed using electrocautery and placed into the right upper quadrant. Any bleeding from the liver bed was then treated with electrocautery. We irrigated out the right upper quadrant and assured there was no sign of any bleeding or bile leakage. At this point, the ports and insufflation were then removed and the gallbladder was taken out through the umbilicus. The umbilical fascia was closed with interrupted 0 Vicryls times 3. The wounds were irrigated out with normal saline and infused with 10 mL of 0.25% Marcaine with epinephrine. The skin incisions were all closed with subcutaneous 5-0 Monocryl and dressed appropriately. COMPLICATIONS: None. CONDITION: Stable. ANESTHESIA: General endotracheal and local. BLOOD LOSS: Minimal. TRANSINT:[id number] Voice Confirmation ID: [id number] DOCUMENT ID: [id number] OPERATIVE REPORT [id number] SHUFFIELD,STEFFEN EASON MD at 1219 CC: SETH SALAMANCA MD [id number] DICTATION DATE: 06/01/1705 GAMING ASSOCIATE: 06/01/17 1007 [facility] [place] 06/01/[address] [facility] [address] [facility] [place] [address]
== END 2017-06-01 12:10 | disposition home or self-care (01) ==
LOC: D.OPS 05:05 → D.PAN 07:30 → D.OPS 11:30
PROVIDERS: Surgery
DX: K82.8 Other specified diseases of gallbladder (principal); I10 Essential (primary) hypertension; E03.9 Hypothyroidism, unspecified; K27.9 Peptic ulcer, site unspecified, unspecified as acute or chronic, without hemorrhage or perforation; Z86.73 Personal history of transient ischemic attack (TIA), and cerebral infarction without residual deficits; E66.01 Morbid (severe) obesity due to excess calories; Z68.43 Body mass index [BMI] 50.0-59.9, adult; Z01.812 Encounter for preprocedural laboratory examination

== ENCOUNTER → 2017-07-16 09:46 | Outpatient (CLI) | payer MEDICARE, BC ==
[2017-06-01 06:22] VITALS: BMI 13.9
[~2017-07-16 09:46] MED LIST changes: +HYDROCODONE-APA1 TAB PO
== END | disposition home or self-care (01) ==
LOC: D.MRI 09:46
DX: M54.5 Low back pain (principal)

== ENCOUNTER 2018-05-04 12:25 | Outpatient (CLI) | payer MEDICARE, BC ==
[~2018-05-04] VITALS: Ht 167.6 cm; Wt 129.5 kg
[2018-05-04 12:39] VITALS: Ht 167.6 cm; Wt 129.5 kg
[2018-05-04 12:57] LABS: BASOPHILS 0.1 % (0-2); EOSINOPHILS 0 % (0-7); HEMATOCRIT 51.6 % (42.0-54.0); HEMOGLOBIN 17.3 g/dL (13.5-17.5); IMMATURE GRANULOCYTES 0.4 % (0-5); LYMPHOCYTES 6.7 % (15-50); MCH 28.5 pg (26.0-34.0); MCHC 33.5 g/dL (31.0-37.0); MEAN PLATELET VOLUME 10.6 fL (7.4-10.4); MONOCYTES 10.8 % (2-11); PLATELET COUNT 193 10x3/uL (130-400); RBC 6.07 10x6/uL (4.20-6.10); RDW 16.1 % (11.5-14.5); WBC 14.9 10x3/uL (4.8-10.8)
== END 2018-05-04 17:00 | disposition home or self-care (01) ==
LOC: D.OPS 12:25
PROVIDERS: Family Medicine
DX: D45 Polycythemia vera (principal); Z01.812 Encounter for preprocedural laboratory examination

== ENCOUNTER 2018-05-11 11:47 | Outpatient (CLI) | payer MEDICARE, BC ==
[~2018-05-11] VITALS: Ht 167.6 cm; Wt 126.4 kg
[2018-05-11 12:19] VITALS: BP 141/67; Ht 167.6 cm; Wt 126.4 kg
== END 2018-05-11 14:29 | disposition home or self-care (01) ==
LOC: D.OPS 11:47
DX: D45 Polycythemia vera (principal); Z01.812 Encounter for preprocedural laboratory examination

== ENCOUNTER 2018-05-23 12:14 | Outpatient (CLI) | payer MEDICARE, BC ==
[~2018-05-23] VITALS: Ht 167.6 cm; Wt 123.2 kg
[2018-05-23 12:44] VITALS: BP 153/77; Ht 167.6 cm; Wt 123.2 kg
== END 2018-05-23 14:50 | disposition home or self-care (01) ==
LOC: D.OPS 12:14
DX: D45 Polycythemia vera (principal); Z01.812 Encounter for preprocedural laboratory examination

== ENCOUNTER 2018-12-16 12:29 | Emergency (ER) | payer MEDICARE, BC ==
[2018-12-16 13:19] VITALS: BMI 36.8
[2018-12-16] MEDS ORDERED: BUMEX2 MG PO (13:25)
[2018-12-16] MEDS ORDERED: PRAVACHOL40 MG PO (13:25)
[2018-12-16 14:04] LABS: BASOPHILS 0.1 % (0-2); EOSINOPHILS 0.8 % (0-7); HEMATOCRIT 42.3 % (42.0-54.0); HEMOGLOBIN 14.4 g/dL (13.5-17.5); IMMATURE GRANULOCYTES 0.3 % (0-5); LYMPHOCYTES 11.6 % (15-50); MCH 30.3 pg (26.0-34.0); MCV 89.1 fL (80.0-100.0); MEAN PLATELET VOLUME 10.8 fL (7.4-10.4); MONOCYTES 6.3 % (2-11); NEUTROPHILS 80.9 % (40-80); PLATELET COUNT 180 10x3/uL (130-400); RBC 4.75 10x6/uL (4.20-6.10); RDW 14.1 % (11.5-14.5); WBC 10.3 10x3/uL (4.8-10.8)
[2018-12-16 14:18] LABS: ALBUMIN 3.2 g/dL (3.4-5.0); ANION GAP 8.6 mmol/L (8-16); BILIRUBIN - TOTAL 0.48 mg/dL (0.2-1.3); CARBON DIOXIDE 34.9 mmol/L (21.0-32.0); CREATININE - SERUM 1.1 mg/dL (0.6-1.3); MAGNESIUM - SERUM 2.1 mg/dL (1.8-2.4); POTASSIUM - SERUM 3.5 mmol/L (3.5-5.1)
[2018-12-16 17:26] VITALS: BP 134/59
== END 2018-12-16 15:47 | disposition home or self-care (01) ==
LOC: D.ER 12:29
PROVIDERS: Emergency Medicine
DX: R53.1 Weakness (principal); R00.1 Bradycardia, unspecified

== ENCOUNTER 2019-02-23 11:26 | Outpatient (CLI) | payer MEDICARE, BC ==
[~2019-02-23] VITALS: Ht 167.6 cm; Wt 113.6 kg
--- NOTE | ~2019-02-23 | HEMODYNAMI ---
PATIENT:HEIDI LIZAMA MEDICAL RECORD: [id number] : 40 LOCATION:[facility] ADMISSION DATE: 02/23/19 Generatedon:02/23/201915:34 Patient name: HEIDI LIZAMA Patient #: [id number] SSN: [id number] : 1940 Date of study: 02/23/2019 Page: Of Hemodynamic Procedure Report Patient Data Patient Demographics Procedure consent was obtained First Name: HEIDI Gender: Male Last Name: ALDA : 1940 Middle Initial: KEILY Age: 79 year(s) Patient #: [id number] Race: SSN: [id number] Additional ID: [id number] Contact details Address: [address] [place] [address] State: [place] City: [place] Zip code: [address] Past Medical History Allergies: No known allergies Admission Admission Data Admission Date: 02/23/2019 Admission Time: 11:26 Height (in.): 66 BSA: 2.2 (m2) Height (cm.): 167.64 BMI: 40.56 (kg/m2) Weight (lbs.): 251.33 Weight (kg.): 114 Lab Results Lab Result Date: 02/23/2019 Lab Result Time: 12:20 Biochemistry Name Units Result Min Max BUN mg/dl 14 --(--*-)-- 7 18 Creatinine mg/dl 0.9 --(-*--)-- 0.6 1.3 CBC Name Units Result Min Max Hematocrit % 37 *-(----)-- 42 54 Hemoglobin g/dl 12.6 -*(----)-- 13.5 17.5 Procedure Procedure Types Cath Procedure Diagnostic Procedure PPM/ICD PPM Dual Implant Sedation Charges Moderate Sedation up to 30 minutes Procedure Description Procedure Date Procedure Date: 02/23/2019 Procedure Start Time: 15:00 Procedure End Time: 15:28 Procedure Staff Name Function Billy Rodriguez MD Performing Physician Steffen Morales MD Assisting physician Devin Bocanegra RN Nurse Carol Virk RN Nurse Jennifer Whitfield RT Scrub Cory Beyer RT Monitor Procedure Data Cath Procedure Fluoroscopy Diagnostic fluoroscopy Total fluoroscopy Time: 2.5 time: 2.5 min min Diagnostic fluoroscopy Total fluoroscopy dose: 55 dose: 55 mGy mGy Contrast Material Contrast Material Type Amount (ml) Isovue 300 0 Estimated blood loss: 5 ml Procedure Complications No complications Procedure Medications Medication Administration Route Dosage 0.9% NaCl I.V. 100 ml/hr Oxygen etCO2 Nasal cannula 2 l/min Lidocaine 1% added to field 20 Ancef (1Gm/50ml NS) I.V.P.B 1 g Ancef Irrigation Topical 1 g (1gm/500ml NS) Versed I.V. 1 mg Fentanyl I.V. 50 mcg Versed I.V. 1 mg Fentanyl I.V. 50 mcg Fentanyl I.V. 25 mcg Hemodynamics Rest BSA: 2.2 (m2) HGB: 12.6 (g/dl) O2 Consumption: Estimated: 235.65 (ml/min) O2 Con sumption indexed: Estimated:107.11 (ml/min/m) Heart Rate: 51 (bpm) Snapshots Pre Cath Intra NCS Post Cath Vital Signs Time Heart Resp SPO2 etCO2 NIBP (mmHg) Rhythm Pain Sedation Rate (ipm) (%) (mmHg) Status Level (bpm) 14:56:24 50 17 95 28.4 216/91(157) NSR 0 (11) 10(A) , No pain 15:01:23 50 13 96 29.9 Measuring NSR 0 (11) 10(A) , No pain 15:05:23 63 54 95 27.7 203/84(145) NSR 0 (11) 10(A) , No pain 15:09:47 50 13 93 32.9 187/96(155) NSR 0 (11) 10(A) , No pain 15:14:11 72 12 99 29.9 185/86(145) NSR 0 (11) 9(A) , No pain 15:18:34 79 12 100 21.7 181/98(135) NSR 0 (11) 9(A) , No pain 15:23:32 63 14 99 32.9 Measuring NSR 0 (11) 9(A) , No pain 15:23:55 59 12 99 33.7 195/102(158) NSR 0 (11) 9(A) , No pain 15:28:17 60 15 100 34.4 183/98(140) NSR 0 (11) 10(A) , No pain Medications Time Medication Route Dose Verified Delivered Reason Notes Effecti veness by by 14:48:27 0.9% NaCl I.V. 100 Billy Pelaezyla used for ml/hr MichaelVenkatesh Virk procedure MD MENDOZA 14:48:35 Oxygen etCO2 2 Billy Carol used for Nasal l/min St Venkatesh Virk procedure cannula RN 14:48:47 Lidocaine added 20ml Steffen Hesterian for local 1% to vial Pamela Morales MD anesthetic field x 2 14:48:59 Ancef I.V.P.B 1 g Mormonism Mormonism used for (1Gm/50ml Pamela Morales MD procedure NS) 14:49:10 Ancef Topical 1 g Mormonism Mormonism used for Irrigation Pamela Morales MD procedure (1gm/500ml NS) 14:58:46 Versed I.V. 1 mg Mormonism Buffie for Pamela Bocanegra RN sedation 14:58:53 Fentanyl I.V. 50 Mormonism Buffie for rickie Bocanegra RN sedation 15:04:36 Versed I.V. 1 mg Mormonism Buffie for Pamela Bocanegra RN sedation 15:04:40 Fentanyl I.V. 50 Mormonism Buffie for mcg Pamela Bocanegra RN sedation 15:17:07 Fentanyl I.V. 25 Mormonism Buffie for rickie Bocanegra RN sedation Procedure Log Time Note 14:29:25 Carol Virk RN sent for patient. Start room use. 14:32:12 Signed procedure consent form obtained from patient. 14:32:18 Procedure Status Elective Heart Cath (OP). 14:32:20 Time tracking: Regular hours (M-F 7:00 - 5:00) 14:32:24 Plan of Care:Hemodynamics will remain stable., Cardiac rhythm will remain stable., Comfort level will be maintained., Respiratory function will remain adequate., Patient/ family verbilizes understanding of procedure., Procedure tolerated without complication., Recovers from procedure without complications.. 14:32:37 H&P Date Dictated: 02/15/2019 Within 30 days and on chart., H&P Addendum completed by physician on day of procedure. (MUST COMPLETE FOR ALL OUTPATIENTS). 14:32:42 Patient allergic to No known allergies 14:34:12 Patient Weight : 251.33 lbs 14:34:34 Patient Height : 66 inches 14:38:52 Patient received from Pre/Post Procedure Room to CCL 1 Alert and oriented. Tansferred to table in Supine position. 14:38:54 Warm blankets applied, and emma hugger turned on for patient comfort. 14:38:55 Correct patient and procedure confirmed by team. 14:38:57 ECG and BP/O2 sat monitors applied to patient. 14:48:13 Vital chart was started 14:48:27 0.9% NaCl 100 ml/hr I.V. was administered by Carol Virk RN; used for procedure; 14:48:35 Oxygen 2 l/min etCO2 Nasal cannula was administered by Carol Virk RN; used for procedure; 14:48:47 Lidocaine 1% 20ml vial x 2 added to field was administered by Steffen Morales MD; for local anesthetic; 14:48:59 Ancef (1Gm/50ml NS) 1 g I.V.P.B was administered by Steffen Morales MD; used for procedure; 14:49:10 Ancef Irrigation (1gm/500ml NS) 1 g Topical was administered by Steffen Morales MD; used for procedure; 14:50:34 Baseline sample Acquired. 14:50:37 Rhythm: sinus rhythm 14:50:38 Full Disclosure recording started 14:50:40 Pre-procedure instructions explained to patient. 14:50:40 Pre-op teaching completed and patient verbalized understanding. 14:50:42 Family in waiting room. 14:50:43 Patient NPO since Midnight. 14:50:47 Is the patient allergic to Iodine/contrast media? No. 14:50:52 Is patient on blood thinner?Yes 14:50:54 ACC The patient was administered the following blood thiners within the last 24 hours: ACCAspirin, ACCPlavix 14:50:58 Patient diabetic? No. 14:51:02 Previous problem with sedation/anesthesia? No ? 14:51:03 Snore? Yes 14:51:04 Sleep apnea? Yes 14:51:04 Deviated septum? No 14:51:05 Opens mouth fully? Yes 14:51:06 Sticks out tongue? Yes 14:51:08 Airway obstruction? No ? 14:51:12 Dentures? Yes in tight 14:51:15 Patient pain scale 0/10 ?. 14:51:19 IV patent on arrival in right forearm with 0.9% NaCl at [facility]. 14:51:25 Medtronic medical office representative stefano diaz present for procedure. 14:51:42 Lab results completed and on chart. 14:52:19 Lab Result : BUN 14 mg/dl 14:52:19 Lab Result : Hemoglobin 12.6 g/dl 14:52:19 Lab Result : Creatinine 0.9 mg/dl 14:52:19 Lab Result : Hematocrit 37 % 14:52:25 Left chest area was prepped with chlora-prep and draped in sterile fashion 14:52:26 Alarms reviewed by R. N. 14:52:27 Sharps counted by scrub and verified by R.N. 14:52:36 Pre sharps counted by scrub and verified by RN: Sutures: 7; Sponges: 5; Stick needles: 2; Skin needles: 2; Blade: 1; Cautery: 1 14:52:39 Grounding pad site Left thigh. 14:52:40 Grounding pad site free from injury. 14:55:20 Physician arrived 14:55:21 --------ALL STOP TIME OUT------ 14:55:21 Final Timeout: patient, procedure, and site verified with staff and physician. All members of the team are in agreement. 14:55:25 Left chest site verified by team. 14:55:29 Fire Safety Assessment: A--An alcohol-based skin anteseptic being used preoperatively., B--The operative or invasive procedure is being performed above the xiphoid process or in the oropharynx., C--Open oxygen or nitrous oxide is being used. 14:55:31 Physical assessment completed. ASA score P 2 - A patient with mild systemic disease as per Billy Rodriguez MD. 14:55:37 Sedation plan: IV Moderate Sedation Medication:Versed, Fentanyl 14:58:38 Use device set PAMELA PPM 14:58:40 2-0 Ticron Multipack ([id number]) opened to sterile field. 14:58:40 3-0 Vicryl Single Pack [id number] opened to sterile field. 14:58:41 5-0 Monocryl PS2 [id number] opened to sterile field. 14:58:41 Cautery Tip Demand Planning Analyst opened to sterile field. 14:58:42 Cautery Pushbutton Pencil opened to sterile field. 14:58:42 Mepilex Dressing (159339) opened to sterile field. 14:58:45 Immobilizer Extra Large opened to sterile field. 14:58:46 Versed 1 mg I.V. was administered by Devin Bocanegra RN; for sedation; 14:58:53 Fentanyl 50 mcg I.V. was administered by Devin Bocanegra RN; for sedation; 14:59:[address] Generator [id number] opened to sterile field. 15:00:08 Procedure started. 15:00:12 Lidocaine 1% was administered to left subclavicular area by Steffen Morales MD . 15:00:14 Incision made to left subclavicular area. 15:00:15 Generator pocket made/opened. 15:00:41 Medtronic 4574-45 PPM Lead opened to sterile field. 15:00:42 Medtronic 4074-52 PPM Lead opened to sterile field. 15:04:36 Versed 1 mg I.V. was administered by Devin Bocanegra RN; for sedation; 15:04:40 Fentanyl 50 mcg I.V. was administered by Devin Bocanegra RN; for sedation; 15:07:28 Left subclavian vein accessed with 7Fr Peel Away Sheath. 15:07:32 Left subclavian vein accessed with 7Fr Peel Away Sheath. 15:10:18 Ventricular lead inserted and advanced. 15:10:20 Atrial lead inserted and advanced. 15:13:40 Ventricular lead positioned. 15:13:42 Ventricular lead tested. 15:14:19 Atrial lead positioned. 15:15:23 Atrial lead tested. 15:16:15 PPM Dual was attached to lead(s) and inserted into pocket. 15:16:35 Generator was sutured in place with 2-0 ticron. 15:16:39 Atrial lead attachment was completed with 2-0 ticron. 15:16:43 Ventricular lead attachment was completed with 2-0 ticron. 15:17:07 Fentanyl 25 mcg I.V. was administered by Devin Bocanegra RN; for sedation; 15:19:31 Device pocket was irrigated with Ancef. 15:19:40 Subcutaneous closure was completed with 3-0 vicryl plus. 15:21:18 Parameters-- Generator: Mode: AAIR<=>DDDR. Lower Rate: 60bpm. Upper Rate: 120bpm. 15:21:44 Parameters--Atrial P/R Wave: 2.1mV. Current: .4mA; Threshold: 0.3V; Impedence: 583OHMS. 15:22:03 Parameters--Ventricular P/R Wave: 8.5mV. Current: 0.3mA; Threshold: 0.3V; Impedence: 587OHMS. 15:26:10 Skin closure was completed with 5-0 monocryl. 15:26:14 Lt Chest incision was dressed with Mepilex dressing. 15:26:19 Procedure ended.(Physican Out) 15:27:03 Fluoroscopy time 02.50 minutes. 15:27:14 Fluoroscopy dose: 55 mGy 15:27:14 Flurop Dose total: 55 15::19 Contrast amount:Isovue 300 0ml. 15:27:23 Sharps counted by scrub and verified by R.N. 15:27:32 Post sharps counted by scrub and verified by RN: Sutures: 7; Sponges: 5; Stick needles: 2; Skin needles: 2; Blade: 1; Cautery: 1 15:27:35 Insertion/operative site no bleeding no hematoma. 15:27:40 Post-op/insertion site Left Subclavian vein dressed using a 4 x 4 and Tegaderm. 15:27:48 Post left subclavian vein:stable, soft, clean and dry 15:27:49 Post Procedure Pulses reassessed and unchanged 15:27:51 Post-procedure physical assessment completed. ASA score P 2 - A patient with mild systemic disease as per Billy Rodriguez MD. 15:27:55 Post procedure rhythm: sinus rhythm , paced 15:27:59 Estimated blood loss: 5 ml 15:28:00 Post procedure instruction explained to patient.Patient verbalizes understanding. 15:28:01 Patient needs reinforcement of post procedure teaching. 15:28:18 Procedure type changed to Cath procedure, Diagnostic procedure, PPM/ICD, PPM Dual Implant, Sedation Charges, Moderate Sedation up to 30 minutes 15:28:33 Procedure and supply charges have been captured, reviewed, submitted and are correct. 15:28:35 Procedure Complication : No complications 15:28:37 Vital chart was stopped 15:28:37 See physician's report for complete and final results. 15:28:39 Report given to PCU. 15:28:42 Patient transfered to PCU with Stretcher. 15:28:44 Procedure ended. 15:28:44 Full Disclosure recording stopped 15:28:50 End room use (Document Last) Device Usage Item Name Manufacture Quantity Catalog Hospital Part Current Minima l Lot# / Number Charge Number Stock Stock Serial# Code 2-0 Ticron Ethicon 7 [id number] 12658 286828 5 Multipack ([id number]) 3-0 Vicryl Ethicon 1 [id number] 468374 734954 154020 5 Single Pack [id number] 5-0 Monocryl Ethicon 1 Y495G 786184 019999 038941 5 PS2 Y495G Cautery Tip Microtek 1 [id number] 690740 342177 649198 5 Demand Planning Analyst [employer] Cautery Microtek 1 [id number] 312463 02188 401173 5 Pushbutton [employer] Inc[employer] Pencil Mepilex Cardinal 1 011358 472683 229567 721365 5 Dressing Health (351975) Immobilizer Cardinal 1 [id number] 746741 501957 803724 5 Extra Large Health Medtronic Medtronic 1 [id number] 715726 6498327 290348 5 2020-06-24 BECCA JEWEL BAEZA [id number] Generator [id number] Medtronic Medtronic 1 4574-45 646646 406154 169654 5 2020-05-25 4574-45 PPM [id number] Lead Medtronic Medtronic 1 4074-52 165468 196174 706921 5 2020-06-20 4074-52 PPM [id number] Lead Signature Audit [place] Stage Time Signature Unsigned Intra-Procedure 02/23/2019 Cory Beyer 3:34:18 PM RT(R) Signatures Performing Physician : Signature : Billy Rodriguez MD Date : Time : Nurse : Buffie Bocanegra RN Signature : Date : Time : Nurse : Carol Moose RN Signature : Date : Time : Monitor : Cory Beyer RT Signature : Date : Time : [address] [place] [address]
[~2019-02-23 11:26] MED LIST changes: +BUMEX2 MG PO
[2019-02-23] MEDS ORDERED: PLAVIX75 MG PO (12:05)
[2019-02-23] MEDS ORDERED: TENORMIN25 MG PO (12:06)
[2019-02-23] MEDS ORDERED: BACLOFEN20 M1 PO (12:07)
[2019-02-23 12:19] VITALS: BP 164/74; BMI 40.4
[2019-02-23 12:32] LABS: HEMOGLOBIN 12.6 g/dL (13.5-17.5); MCH 29.2 pg (26.0-34.0); MCHC 34.1 g/dL (31.0-37.0); MCV 85.8 fL (80.0-100.0); MEAN PLATELET VOLUME 9.9 fL (7.4-10.4); RBC 4.31 10x6/uL (4.20-6.10); RDW 14.5 % (11.5-14.5); WBC 8.4 10x3/uL (4.8-10.8)
[2019-02-23 12:39] LABS: CALC OSMOLALITY 281 mosm/kg (275-300); CALCIUM 8.6 mg/dL (8.5-10.1); CARBON DIOXIDE 28.7 mmol/L (21.0-32.0); CHLORIDE - SERUM 106 mmol/L (98-107); CREATININE - SERUM 0.9 mg/dL (0.6-1.3); GLUCOSE 94 mg/dL (74-106); POTASSIUM - SERUM 3.7 mmol/L (3.5-5.1); SODIUM 141 mmol/L (136-145); UREA NITROGEN 14 mg/dL (7-18); eGFR NON AFRICAN AMERICAN 86 mL/min (90-120)
[2019-02-23 12:56] LABS: APTT 27.6 SECONDS (22.8-39.4); INR 1.12 (0.85-1.17); PROTIME 13.9 SECONDS (11.6-15.0)
--- NOTE | 2019-02-23 16:31 | NUR ---
recieved from floating labor gang supervisor. awake and alert. V/S STABLE. PACEMAKER TO LEFT CHECT WITH DRSG DRY AND INTACT. SLIN G IN PLACE TO LEFT ARM. DENIES ANY NEEDS. SR UP WITH CALL LIGHT IN REACH
[2019-02-23 17:29] VITALS: BP 193/84
[2019-02-23 18:17] VITALS: Ht 167.6 cm; Wt 113.6 kg
--- NOTE | 2019-02-23 19:10 | NUR ---
AWAKE AND ALERT SKIN WARM AND DRY AND LCTA DRSG OVER SITE TO LEFT SHOULDER IS DRY AND INTACT SLING TO LEFT ARM IS IN PLACE PUSE DETECTED IN LEFT WRIST. PACED RYTHM ON MONITOR. PT DENIES ANY NEEDS AT THIS TIME BED IS LOW AND LOCKED AND CALL LIGHT IS IN REACH
[2019-02-23 20:00] VITALS: BP 162/92
--- NOTE | 2019-02-23 22:04 | NUR ---
NOTIFIED DR WISEMAN WHO IS CAN DRAGGER FOR CARDIOLOGY THIS EVENING PT RAN AT 125 TO 148 FOR ABOUT 8 MINUTED BACK TO A PACED RYTHM AT THIS TIME NO FURTHER ORDERS INSTRUCTION TO WATCH CLOSELY FOR ANY SYMPTOMS IF IT OCCURS AGAIN
[2019-02-24] VITALS: BP 144/71
[2019-02-24 04:30] VITALS: BP 165/72
--- NOTE | 2019-02-24 07:15 | NUR ---
RECEIVED PT IN BED AAOX4 RESP UNLABORED SKIN W/D DRSG C/D/I TO LT CHEST LT SLING INTACT PT DENIES ANY NEEDS OR DISCOMFORT AT THIS TIME
[2019-02-24 09:58] VITALS: BP 149/63
--- NOTE | 2019-02-24 12:15 | NUR ---
REVIEWED DISCHARGE INSTRUCTIONS WITH PT AND BOTH STATE UNDERSTANDING COPY GIVEN DCD SALINE LOCK TO RFA WITH IV CATHETER INTACT SITE FREE OF REDNESS OR EDEMA PT DISCHARGED HOME IN STABLE CONDITION WITH ALL PERSONAL BELONGINGS LEFT UNIT VIA W/C
--- NOTE | 2019-02-26 09:24 | OP ---
PATIENT NAME: ZEKE ALEXANDER MEDICAL RECORD: [id number] :40 LOCATION:D.CAT ADMISSION DATE: SURGEON: CATHERINE MONREAL MD DATE OF OPERATION: 02/23/2019 PROCEDURE: Lead portion of permanent pacemaker placement. INDICATION: Sick sinus syndrome with bradyarrhythmias. SURGEON: Steffen Morales MD DESCRIPTION OF PROCEDURE: After left subclavian was cannulated via modified Seldinger technique via Dr. Morales, first, under fluoroscopic guidance, I placed the RV lead in the RV apex without difficulty. After adequate R waves and thresholds were obtained, I then placed the right atrial lead in the right atrial appendage without difficulty. After adequate P waves and thresholds were obtained, the leads were attached to appropriate poles of the generator and the pocket was closed via Dr. Morales. IMPRESSION: Successful lead portion of permanent pacemaker placement on Zeke Alexander. ESTIMATED BLOOD LOSS: Minimal. DISPOSITION: To the floor, stable. COMPLICATIONS: None. TRANSINT:[id number] Voice Confirmation ID: [id number] DOCUMENT ID: [id number] CATHERINE MONREAL MD at 0924 CC: [id number] DICTATION DATE: 02/23/19 1525 INDOOR PLANT TECHNICIAN: 02/23/19 1833 [facility] CLI 02/24/19 [place] [id number] [facility] [place] [address]
--- NOTE | 2019-03-09 07:19 | OP ---
PATIENT NAME: HEIDI LIZAMA MEDICAL RECORD: [id number] :40 LOCATION:D.CAT ADMISSION DATE: SURGEON: GERALDO SANTIAGO MD DATE OF OPERATION: 02/23/2019 PREOPERATIVE DIAGNOSES: 1. Sick sinus syndrome. 2. Hypertension. 3. Hyperlipidemia. POSTOPERATIVE DIAGNOSES: 1. Sick sinus syndrome. 2. Hypertension. 3. Hyperlipidemia. PROCEDURE: Left subclavian vein dual lead pacemaker placement with fluoroscopic interpretation. SURGEON: Geraldo Santiago MD CO-SURGEON: Billy Disla MD REPORT OF OPERATION: The patient's left chest was prepped and draped in sterile fashion. A 25 mL of 1% lidocaine with epinephrine was infused into the surrounding tissues. A transverse incision was made on the left superolateral chest and a subcutaneous pouch was made over the pectoral fascia. [place] were used to cannulate the left subclavian vein times 2 and guidewires were advanced with ease. Fluoro was used to note that the wires were in good position in the venous system. A dilator and trocar device were placed over the wire, and the wire and dilator were removed. The leads were advanced through the trocars into the superior vena cava. At this point, Dr. Disla positioned the leads appropriately in atrium and ventricle. Once the leads were noted to be functioning appropriately, then these were sutured into place with #0 Ti-Crons. The leads were affixed to the pacemaker, which was placed into the subcutaneous pouch and sutured to the pectoral fascia using a single interrupted #0 Ti-Cron. The wound was then irrigated out with antibiotic solution and the subcutaneous tissues were closed with subcutaneous 5-0 Monocryl. The skin was closed with running subcutaneous 5-0 Monocryl and dressed appropriately. COMPLICATIONS: None. CONDITION: Stable. ANESTHESIA: Local MAC. BLOOD LOSS: Minimal. TRANSINT:[id number] Voice Confirmation ID: [id number] DOCUMENT ID: [id number] OPERATIVE REPORT [id number] HEIDI LIZAMA GERALDO SANTIAGO MD at 0719 CC: [id number] DICTATION DATE: 02/23/19 1527 FIGURE MODEL: 02/23/19 1837 [facility] CLI 02/24/19 [place] [id number] [place] [address]
== END 2019-02-24 12:15 | disposition home or self-care (01) ==
LOC: D.CATH 11:26 → D.M2 16:02 → D.CATH 02-24 12:15
PROVIDERS: ATTEND Internal Medicine Interventional Cardiology
DX: I49.5 Sick sinus syndrome (principal); I10 Essential (primary) hypertension; E78.5 Hyperlipidemia, unspecified; Z01.812 Encounter for preprocedural laboratory examination

== ENCOUNTER 2019-03-18 10:13 | Emergency (ER) | payer MEDICARE, BC ==
[~2019-03-18] VITALS: Ht 167.6 cm; Wt 113.6 kg
[~2019-03-18 10:13] MED LIST changes: +BACLOFEN20 M1 PO; +TENORMIN25 MG PO
[2019-03-18 10:24] VITALS: Ht 167.6 cm; Wt 113.6 kg
[2019-03-18 12:32] VITALS: BP 173/80
== END 2019-03-18 12:33 | disposition home or self-care (01) ==
LOC: D.ER 10:13
DX: S81.812A Laceration without foreign body, left lower leg, initial encounter (principal); W18.30XA Fall on same level, unspecified, initial encounter; Y93.89 Activity, other specified; Y92.89 Other specified places as the place of occurrence of the external cause

== ENCOUNTER → 2019-12-06 13:30 | Outpatient (CLI) | payer MEDICARE, BC ==
[2019-03-18 10:24] VITALS: BMI 40.4
== END | disposition home or self-care (01) ==
LOC: D.HCCECHO 13:30
PROVIDERS: ATTEND Internal Medicine Cardiovascular Disease
DX: I25.10 Atherosclerotic heart disease of native coronary artery without angina pectoris (principal)

== ENCOUNTER → 2020-11-25 08:50 | Outpatient (CLI) | payer MEDICARE, BC ==
[2020-05-16 16:55] VITALS: BMI 51.7
[~2020-11-25 08:50] MED LIST changes: -ARICEPT5 MG PO; +BETAPACE 80 MG80 MG PO; +DONEPEZIL HCL10 MG PO
== END | disposition home or self-care (01) ==
LOC: D.CT 08:50
PROVIDERS: ATTEND Family Medicine
DX: R10.9 Unspecified abdominal pain (principal)

== ENCOUNTER → 2020-12-16 09:26 | Outpatient (CLI) | payer MEDICARE, BC ==
[2020-05-16 16:55] VITALS: BMI 51.7
[2020-12-16 09:58] LABS: BASOPHILS 0.8 % (0-2); EOSINOPHILS 4.3 % (0-7); HEMATOCRIT 41.3 % (42.0-54.0); HEMOGLOBIN 13.8 g/dL (13.5-17.5); LYMPHOCYTES 20.6 % (15-50); MCH 28.5 pg (26.0-34.0); MCHC 33.4 g/dL (31.0-37.0); MCV 85.2 fL (80.0-100.0); MEAN PLATELET VOLUME 7.6 fL (7.4-10.4); MONOCYTES 13.6 % (2-11); NEUTROPHILS 60.7 % (40-80); PLATELET COUNT 193 10x3/uL (130-400); RBC 4.85 10x6/uL (4.20-6.10); RDW 14.7 % (11.5-14.5); WBC 7.6 10x3/uL (4.8-10.8)
[2020-12-16 10:11] LABS: ALBUMIN 2.9 g/dL (3.4-5.0); ANION GAP 12.4 mmol/L (8-16); BILIRUBIN - TOTAL 0.35 mg/dL (0.2-1.3); CALCIUM 8.6 mg/dL (8.5-10.1); CREATININE - SERUM 1.1 mg/dL (0.6-1.3); POTASSIUM - SERUM 3.4 mmol/L (3.5-5.1); PROTEIN - SERUM 6.7 g/dL (6.4-8.2)
[2020-12-16 13:09] LABS: ERYTHROCYTE SEDIMENTATION RATE 10 mm/hr (0-20)
== END | disposition home or self-care (01) ==
LOC: D.LAB 09:26
PROVIDERS: ATTEND Internal Medicine Gastroenterology
DX: R19.7 Diarrhea, unspecified (principal); R11.0 Nausea

== ENCOUNTER 2021-01-06 14:55 | Inpatient (IN) | payer MEDICARE, BC ==
[~2021-01-06] VITALS: Ht 167.6 cm; Wt 136.1 kg
--- NOTE | ~2021-01-06 | OP ---
PATIENT NAME: HEIDI LIZAMA MEDICAL RECORD: [id number] :40 LOCATION:D [facility] ADMISSION DATE:01/06/21 SURGEON: MARISOL ROBERTS MD DATE OF OPERATION: 01/08/2021 PROCEDURE: Colonoscopy. PREOPERATIVE DIAGNOSIS: Chronic diarrhea. MEDICATION: Propofol per anesthesia. DESCRIPTION OF PROCEDURE: Colonoscopy was performed. The colonoscope was inserted through the rectum and advanced to the cecum, identified by the ileocecal valve and appendiceal orifice. The quality of the prep was good. The entire examined mucosa was normal other than a 1 to 2 cm patch of erythema and edema. This appearance was most likely consistent with resolving ischemic colitis. Biopsies were taken at this area. The remainder of the exam was normal. Stool samples were taken given the patient's history of chronic diarrhea. The patient tolerated the procedure well. FINAL DIAGNOSES: Patchy area of erythema in the distal ascending colon, most likely consistent with resolving mild ischemic colitis, biopsies taken. Remainder of exam was normal. PLAN: Check histology results. Advance diet. Recommend fiber supplements and [id number]-oqz-rwkylpt antidiarrheals. We will see this patient back in GI office. TRANSINT:[id number] Voice Confirmation ID: [id number] DOCUMENT ID: [id number] MARISOL ROBERTS MD CC: [id number] DICTATION DATE: 01/08/21 1527 SOLID WASTE TRUCK DRIVER: 01/08/21 1735 ADM IN [facility] [address] [place] [address]
[2021-01-06 18:11] LABS: BASOPHILS 1.3 % (0-2); EOSINOPHILS 2.8 % (0-7); HEMATOCRIT 43.4 % (42.0-54.0); HEMOGLOBIN 14.4 g/dL (13.5-17.5); LYMPHOCYTES 26.7 % (15-50); MCH 28.4 pg (26.0-34.0); MCHC 33.2 g/dL (31.0-37.0); MCV 85.5 fL (80.0-100.0); MEAN PLATELET VOLUME 7.6 fL (7.4-10.4); MONOCYTES 13.2 % (2-11); RBC 5.08 10x6/uL (4.20-6.10); RDW 14.9 % (11.5-14.5); WBC 9.5 10x3/uL (4.8-10.8)
[2021-01-06 18:12] LABS: CALC OSMOLALITY 277 mosm/kg (275-300); CALCIUM 8.9 mg/dL (8.5-10.1); CARBON DIOXIDE 29.7 mmol/L (21.0-32.0); CHLORIDE - SERUM 103 mmol/L (98-107); GLUCOSE 97 mg/dL (74-106); POTASSIUM - SERUM 3.8 mmol/L (3.5-5.1); SODIUM 140 mmol/L (136-145); UREA NITROGEN 10 mg/dL (7-18); eGFR NON AFRICAN AMERICAN 76 mL/min (90-120)
[2021-01-06 18:15] LABS: PLATELET COUNT 240 10x3/uL (130-400)
[2021-01-06 18:25] LABS: ALBUMIN 3.2 g/dL (3.4-5.0); ALKALINE PHOSPHATASE 85 U/L (30-120); ALT (SGPT) 25 U/L (10-68); BILIRUBIN - TOTAL 0.48 mg/dL (0.2-1.3); LIPASE 62 U/L (73-393); MAGNESIUM - SERUM 2.1 mg/dL (1.8-2.4); PROTEIN - SERUM 7.2 g/dL (6.4-8.2); THYROID STIMULATING HORMONE 1.36 uIU/mL (0.36-3.74)
[2021-01-06 19:22] LABS: ERYTHROCYTE SEDIMENTATION RATE 20 mm/hr (0-20)
[2021-01-06] MEDS ORDERED: FUROSEMIDE20 MG PO (22:08)
[2021-01-06] MEDS ORDERED: PRAVASTATIN SOD10 MG PO (22:09)
[2021-01-06] MEDS ORDERED: CULTURELLE HLT1 EACH (22:09)
[2021-01-06] MEDS ORDERED: ULTRAM50 MG PO (22:10)
[2021-01-06 22:30] VITALS: BP 146/49
--- NOTE | 2021-01-06 22:57 | NUR ---
PT ARRIVED ON UNIT VIA STRETCHER, ESCORTED BY ER STAFF. ORIENTED TO ROOM AND CALL LIGHT. IV TO LEFT HAND PATENT, AND NS @ 100 ML/HR WAS CONTINUED. TELEMETRY PLACED PER ORDER, AND PT READING SR AT THIS ASSESSMENT. PT CAUTIONED TO CALL FOR ASSISTANCE WHEN AMBULATING.
--- NOTE | 2021-01-06 23:25 | NUR ---
ALAN KENNEDY APN TO ADVISE PT'S BP ON ARRIVAL TO UNIT 145/112. RECEIVED ORDER TO RE-START HOME SOTALOL PO FROM HOME MED LIST. PT ALSO REQUESTING MEDICATION TO HELP HIM SLEEP...RECEIVED ORDER FOR ONE TIME DOSE OF BENADRYL 25 MG IVP. WILL CONTINUE TO MONITOR FOR NEEDS.
[2021-01-07 00:31] VITALS: BP 145/113; BMI 48.5
[2021-01-07 04:00] VITALS: BP 123/54
[2021-01-07 06:14] LABS: BASOPHILS 0.7 % (0-2); HEMATOCRIT 41.2 % (42.0-54.0); HEMOGLOBIN 13.6 g/dL (13.5-17.5); LYMPHOCYTES 21.6 % (15-50); MCH 28.4 pg (26.0-34.0); MCHC 32.9 g/dL (31.0-37.0); MCV 86.4 fL (80.0-100.0); MEAN PLATELET VOLUME 7.6 fL (7.4-10.4); MONOCYTES 12.7 % (2-11); PLATELET COUNT 234 10x3/uL (130-400); RBC 4.77 10x6/uL (4.20-6.10); RDW 14.7 % (11.5-14.5)
[2021-01-07 06:24] LABS: INR 1.14 (0.85-1.17); PROTIME 13.5 SECONDS (11.6-15.0)
[2021-01-07 06:46] LABS: ALKALINE PHOSPHATASE 77 U/L (30-120); ALT (SGPT) 23 U/L (10-68); BILIRUBIN - TOTAL 0.59 mg/dL (0.2-1.3); CALC OSMOLALITY 279 mosm/kg (275-300); CALCIUM 8.5 mg/dL (8.5-10.1); CARBON DIOXIDE 28.2 mmol/L (21.0-32.0); CHLORIDE - SERUM 105 mmol/L (98-107); CKMB 0.1 U/L (0.0-3.6); CREATINE KINASE 158 UL (21-232); GLUCOSE 94 mg/dL (74-106); POTASSIUM - SERUM 3.3 mmol/L (3.5-5.1); PROTEIN - SERUM 6.7 g/dL (6.4-8.2); SODIUM 141 mmol/L (136-145); TROPONIN-I < 0.017 ng/mL (0.000-0.060); UREA NITROGEN 11 mg/dL (7-18); eGFR NON AFRICAN AMERICAN 76 mL/min (90-120)
[2021-01-07 08:54] VITALS: BP 149/84
[2021-01-07 11:22] LABS: BILIRUBIN NEGATIVE (NEGATIVE); GRANULAR CAST 1 LPF (0-1); KETONE NEGATIVE mg/dL (< 1+); NITRITE NEGATIVE (NEGATIVE); SQUAMOUS EPITHELIAL 1 HPF (0-4); UROBILINOGEN NORMAL mg/dL (< 2); WHITE CELLS - URINE 2 HPF (0-1)
[2021-01-07 12:42] VITALS: BMI 48.4
[2021-01-07 13:17] VITALS: BP 147/91
[2021-01-07 17:38] VITALS: Ht 167.6 cm; Wt 136.1 kg
[2021-01-07 17:42] VITALS: BP 145/66
--- NOTE | 2021-01-07 19:45 | NUR ---
RECEIVED BEDSIDE REPORT. PT SITTING UP IN BED A&O X4. PIV TO LEFT HAND PATENT AND INFUSING, NO REDNESS OR SWELLING. TELEMETRY IN PLACE, 68 SR. PT ABLE TO AMBULATE AD SERJIO. EDUCATED ON CL AND NEEDS, VERBALIZED UNDERSTANDING. BED LOW, CL IN REACH.
[2021-01-07 20:00] VITALS: BP 151/56
[2021-01-08] VITALS: BP 140/61
[2021-01-08 04:00] VITALS: BP 170/72
[2021-01-08 06:45] LABS: ANION GAP 13.6 mmol/L (8-16); BASOPHILS 0.5 % (0-2); BILIRUBIN - TOTAL 0.59 mg/dL (0.2-1.3); CALCIUM 8.5 mg/dL (8.5-10.1); CARBON DIOXIDE 24.8 mmol/L (21.0-32.0); CREATININE - SERUM 1.1 mg/dL (0.6-1.3); EOSINOPHILS 3.5 % (0-7); HEMATOCRIT 39.2 % (42.0-54.0); HEMOGLOBIN 13.1 g/dL (13.5-17.5); LYMPHOCYTES 24.3 % (15-50); MAGNESIUM - SERUM 1.8 mg/dL (1.8-2.4); MCH 28.7 pg (26.0-34.0); MCHC 33.4 g/dL (31.0-37.0); MCV 85.7 fL (80.0-100.0); MEAN PLATELET VOLUME 7.6 fL (7.4-10.4); MONOCYTES 14.1 % (2-11); NEUTROPHILS 57.6 % (40-80); PLATELET COUNT 215 10x3/uL (130-400); POTASSIUM - SERUM 3.4 mmol/L (3.5-5.1); PROTEIN - SERUM 6.6 g/dL (6.4-8.2); RBC 4.57 10x6/uL (4.20-6.10); RDW 14.5 % (11.5-14.5); WBC 8.6 10x3/uL (4.8-10.8)
--- NOTE | 2021-01-08 09:00 | NUR ---
PATIENT IV RESTARTED IN RIGHT FA X1 STICK. 20G. PATIENT TOLERATED WITH SMALL AMOUNT OF PAIN. IVF RESTARTED. PROTONIX GIVEN. CALL LIGHT WITHIN REACH.
[2021-01-08 09:43] VITALS: BP 147/58
--- NOTE | 2021-01-08 12:45 | NUR ---
PATIENT RECIEVED H20 ENEMA AT THIS TIME. RESULTS WERE CLEAR. NO MORE ENEMAS NEEDED AT THIS TIME. IV INTACT. CALL LIGHT WITHIN REACH. FAMILY AT BEDSIDE.
[2021-01-08 14:22] VITALS: BP 150/60
--- NOTE | 2021-01-08 15:10 | NUR ---
PATIENT GETTING COLONOSCOPY
--- NOTE | 2021-01-08 16:20 | NUR ---
PATIENT BACK FROM COLONOSCOPY. NO COMPLAINTS OR SIGNS OF DISTRESS. VS STABLE. IV INTACT. FAMILY AT BEDSIDE. CALL LIGHT WITHIN REACH.
--- NOTE | 2021-01-08 17:00 | NUR ---
PATIENT TOLERATING REGULAR DIET WITH NO COMPLAINTS OR PROBLEMS. IV INTACT. FAMILY AT BEDSIDE.
[2021-01-08 17:47] VITALS: BP 151/82
[2021-01-08 20:00] VITALS: BP 132/67
[2021-01-09 04:00] VITALS: BP 163/73
--- NOTE | 2021-01-09 06:30 | NUR ---
I have reviewed this patient and I concur with the Shift Assessment completed by the Licensed Practical Nurse today this shift.
[2021-01-09 07:59] LABS: BASOPHILS 0.7 % (0-2); EOSINOPHILS 3.3 % (0-7); HEMATOCRIT 37.2 % (42.0-54.0); HEMOGLOBIN 12.3 g/dL (13.5-17.5); LYMPHOCYTES 23.1 % (15-50); MCH 28.2 pg (26.0-34.0); MCHC 33.1 g/dL (31.0-37.0); MCV 85.3 fL (80.0-100.0); MEAN PLATELET VOLUME 7.8 fL (7.4-10.4); MONOCYTES 12.9 % (2-11); PLATELET COUNT 194 10x3/uL (130-400); RBC 4.36 10x6/uL (4.20-6.10); RDW 14.9 % (11.5-14.5); WBC 8.7 10x3/uL (4.8-10.8)
[2021-01-09 08:10] LABS: ALBUMIN 2.7 g/dL (3.4-5.0); ALKALINE PHOSPHATASE 64 U/L (30-120); ALT (SGPT) 24 U/L (10-68); BILIRUBIN - TOTAL 0.45 mg/dL (0.2-1.3); CALC OSMOLALITY 277 mosm/kg (275-300); CALCIUM 8.1 mg/dL (8.5-10.1); CARBON DIOXIDE 26.1 mmol/L (21.0-32.0); CHLORIDE - SERUM 107 mmol/L (98-107); GLUCOSE 79 mg/dL (74-106); MAGNESIUM - SERUM 1.9 mg/dL (1.8-2.4); POTASSIUM - SERUM 3.3 mmol/L (3.5-5.1); SODIUM 141 mmol/L (136-145); UREA NITROGEN 7 mg/dL (7-18); eGFR NON AFRICAN AMERICAN 76 mL/min (90-120)
[2021-01-09 09:01] VITALS: BP 151/68
[2021-01-09 14:01] VITALS: BP 111/54
[2021-01-09 16:42] VITALS: BP 151/74
--- NOTE | 2021-01-09 18:45 | NUR ---
PATIENT IN BED WITH IV INTACT. EYES CLOSED RESTING QUIETLY. CALL LIGHT WITHIN REACH.
[2021-01-09 20:00] VITALS: BP 136/68
--- NOTE | 2021-01-09 20:00 | NUR ---
SITTING UP IN CHAIR AT BEDSIDE, DENIES PAIN OR NEEDS AT THIS TIME, SEE SHIFT ASSESSMENT, CALL LIGHT IN REACHH
[2021-01-10 00:13] VITALS: BP 137/77
[2021-01-10 04:35] VITALS: BP 147/72
[2021-01-10 06:57] LABS: BASOPHILS 0.6 % (0-2); EOSINOPHILS 5.6 % (0-7); HEMATOCRIT 37.6 % (42.0-54.0); HEMOGLOBIN 12.6 g/dL (13.5-17.5); LYMPHOCYTES 27.1 % (15-50); MCH 28.7 pg (26.0-34.0); MCHC 33.5 g/dL (31.0-37.0); MCV 85.8 fL (80.0-100.0); MEAN PLATELET VOLUME 7.8 fL (7.4-10.4); MONOCYTES 12.4 % (2-11); NEUTROPHILS 54.3 % (40-80); PLATELET COUNT 178 10x3/uL (130-400); RBC 4.38 10x6/uL (4.20-6.10); RDW 14.8 % (11.5-14.5); WBC 6.7 10x3/uL (4.8-10.8)
[2021-01-10 07:38] LABS: ALBUMIN 2.7 g/dL (3.4-5.0); ALKALINE PHOSPHATASE 64 U/L (30-120); ALT (SGPT) 23 U/L (10-68); BILIRUBIN - TOTAL 0.38 mg/dL (0.2-1.3); CALC OSMOLALITY 280 mosm/kg (275-300); CALCIUM 8.3 mg/dL (8.5-10.1); CARBON DIOXIDE 25.6 mmol/L (21.0-32.0); CHLORIDE - SERUM 107 mmol/L (98-107); GLUCOSE 91 mg/dL (74-106); POTASSIUM - SERUM 3.3 mmol/L (3.5-5.1); SODIUM 142 mmol/L (136-145); UREA NITROGEN 8 mg/dL (7-18); eGFR NON AFRICAN AMERICAN 76 mL/min (90-120)
--- NOTE | 2021-01-10 07:50 | NUR ---
Nutrition follow-up: Pt receiving a regular diet after colonoscopy PO intake ~90% average of meals Labs reviewed Wt: 300# ->stable from admit Possible discharge home today per surgeon Pt currenty meeting nutrition goals/ RDN will continue to monitor patients progress with nutrition goals in 3-6 days.
[2021-01-10 09:14] VITALS: BP 147/79
--- NOTE | 2021-01-10 09:26 | NUR ---
ALERT AND ORIENTED. ASSESSMENT COMPLETE. DENIES NEEDS. CALL TRAVIS IN REACH. WILL CONTINUE TO MONITOR.
[2021-01-10] MEDS ORDERED: FIBERCON625 MG PO (11:37)
[2021-01-10] MEDS ORDERED: QUESTRAN PACKET4 GM PO (11:38)
--- NOTE | 2021-01-10 12:01 | MORECARE ---
CASE MANAGEMENT DISCHARGE SUMMARY PATIENT: HEIDI LIZAMA UNIT: [id number] ADM DATE: 01/06/21 AGE: 80 : 40 SEX: M ROOM/BED: D.2202 AUTHOR: PILY ALY PHYSICIAN: REFERRING PHYSICIAN: CARLOS WILKINS DO DATE OF SERVICE: 01/10/21 Case Management Discharge Planning Summary COMMENTS ENTERED DATE: 01/10/21 11:57 CT COMMENT TYPE: Discharge Planning REVIEWER: Joanne Krause CM met with patient to complete initial dc planning assessment. CM educated patient on the CM role and verbal consent given by patient to complete assessment. Patient lives at home with his spouse who helps him with his care. At discharge patient plans to return home and feels this is a safe discharge. His will be his race car driver home today. CM discussed availability of home health, rehab services, and medical equipment. The patient asked me to talk to his about it, and I called her and she stated that she didn't think they needed it. She has good support with her son and his family. He has a CPAP, walker and cane at home. He is a patient of Dr Will and uses [facility] pharmacy. IMM served and explained and refusal for hh signed. Patient denied known discharge needs at this time. CM will continue to follow and will assist as needed with dc plans/needs. DCP REVIEW SUMMARY ANTICIPATED D/C DATE: EXPECTED LOS : CASE STATUS: DCP Initiated INITIAL REVIEW: 01/06/2021 INITIAL REVIEWER: Joanne Krause FINAL DISCHARGE DISPOSITION: 01 : Home or Self Care (Routine Discharge) FINAL REVIEWER: FINAL REVIEW DATE: DCP Focus Questions & Answers QUESTION: ANSWER : PATIENT: HEIDI LIZAMA ENCOUNTER: [id number] MEDICAL RECORD#: [id number] ADMISSION DATE: 01/06/2021 DISCHARGE DATE: ATTENDING MD: CARLOS VALENTINE : AGE: 80 MARITAL STATUS: M DC PLAN ID: [id number] FACILITY: [facility] PRINTED ON: 01/10/21 12:01 CT All edits/amendments must be made on the electronic document DICTATION DATE: 01/10/211200 COMMERCIAL LOAN ANALYST: TAMIKO 01/10/211200 RPT#: [id number] DC DATE: STATUS: ADM IN [facility] [address] [place] [address] END OF REPORT
--- NOTE | 2021-01-10 12:41 | NUR ---
PT. RECEIVED DISCHARGE INSTRUCTIONS AND VERBALIZED UNDERSTANDING. IV AND TELE REMOVED. GETTING DRESSED AND AWAITING RIDE HOME WITH .
--- NOTE | 2021-01-10 16:18 | MORECARE ---
CASE MANAGEMENT DISCHARGE SUMMARY PATIENT: HEIDI LIZAMA UNIT: [id number] ADM DATE: 01/06/21 AGE: 80 : 40 SEX: M ROOM/BED: D.2202 AUTHOR: JERMAIN,PILY PHYSICIAN: REFERRING PHYSICIAN: CARLOS WILKINS DO DATE OF SERVICE: 01/10/21 Case Management Discharge Planning Summary COMMENTS ENTERED DATE: 01/10/21 11:57 CT COMMENT TYPE: Discharge Planning REVIEWER: Joanne Krause CM met with patient to complete initial dc planning assessment. CM educated patient on the CM role and verbal consent given by patient to complete assessment. Patient lives at home with his spouse who helps him with his care. At discharge patient plans to return home and feels this is a safe discharge. His will be his patient transportation driver home today. CM discussed availability of home health, rehab services, and medical equipment. The patient asked me to talk to his about it, and I called her and she stated that she didn't think they needed it. She has good support with her son and his family. He has a CPAP, walker and cane at home. He is a patient of Dr Will and uses [facility] pharmacy. IMM served and explained and refusal for hh signed. Patient denied known discharge needs at this time. CM will continue to follow and will assist as needed with dc plans/needs. DCP REVIEW SUMMARY ANTICIPATED D/C DATE: EXPECTED LOS : CASE STATUS: DCP Initiated INITIAL REVIEW: 01/06/2021 INITIAL REVIEWER: Joanne Krause FINAL DISCHARGE DISPOSITION: 01 : Home or Self Care (Routine Discharge) FINAL REVIEWER: FINAL REVIEW DATE: DCP [employer] Questions & Answers QUESTION: ANSWER : PATIENT: HEIDI LIZAMA ENCOUNTER: [id number] MEDICAL RECORD#: [id number] ADMISSION DATE: 01/06/2021 DISCHARGE DATE: 01/10/2021 ATTENDING MD: CARLOS VALENTINE : AGE: 80 MARITAL STATUS: M DC PLAN ID: [id number] FACILITY: [facility] PRINTED ON: 01/10/21 16:18 CT All edits/amendments must be made on the electronic document DICTATION DATE: 01/10/211617 MASH FILTER OPERATOR: TAMIKO 01/10/211617 RPT#: [id number] DC DATE:01/10/21 STATUS: DIS IN [facility] [address] [facility] [place] [address] END OF REPORT
[2021-01-10 19:09] LABS: OVA + PARASITE EXAM Final report (())
== END 2021-01-10 13:13 | disposition home or self-care (01) | DRG 394 ==
LOC: D.ER 14:55 → D.EDHOLD 20:30 → D.MS 20:30
PROVIDERS: Emergency Medicine; Family Medicine; Internal Medicine Gastroenterology; ADMIT Family Medicine; ATTEND Family Medicine
PROC: 0DBK8ZX Excision of Ascending Colon, Via Natural or Artificial Opening Endoscopic, Diagnostic (ICD-10-PCS; principal; 2021-01-08 14:16)
DX: K55.9 Vascular disorder of intestine, unspecified (principal); G93.40 Encephalopathy, unspecified; R53.1 Weakness; R19.7 Diarrhea, unspecified; I48.91 Unspecified atrial fibrillation; E03.9 Hypothyroidism, unspecified; I10 Essential (primary) hypertension; I25.10 Atherosclerotic heart disease of native coronary artery without angina pectoris; G47.33 Obstructive sleep apnea (adult) (pediatric); D75.1 Secondary polycythemia; M19.90 Unspecified osteoarthritis, unspecified site; G89.29 Other chronic pain; M54.9 Dorsalgia, unspecified; L40.9 Psoriasis, unspecified; N40.0 Benign prostatic hyperplasia without lower urinary tract symptoms; F41.8 Other specified anxiety disorders; Z86.73 Personal history of transient ischemic attack (TIA), and cerebral infarction without residual deficits; Z95.5 Presence of coronary angioplasty implant and graft; Z87.11 Personal history of peptic ulcer disease; Z79.02 Long term (current) use of antithrombotics/antiplatelets